=== PATIENT | male | born 1965 | race Caucasian/White ===

== ENCOUNTER 2017-06-12 01:18 | Inpatient (IN) | payer BC, OTHER ==
[~2017-06-12] VITALS: Ht 175.3 cm; Wt 84.0 kg
[~2017-06-12 01:18] MED LIST: ACET325T21 PO; ACID1TAB7 PO; ALPR0.25 PO; ALPR2TAB4 PO; AMLO10TA2 PO; AMLO5TAB2 PO; AMOX1TAB12 PO; APIX5TAB PO; CITA20TA5 PO; DOXY100T PO; ENOX80SY5 SQ; FOLI-17 PO; FURO20TA3 PO; HYDR-3237 PO; HYDR-3240 PO; LEVE500T53 PO; METO25TA35 PO; MULT1TAB60 PO; NICO-487 TD; OXYC5TAB3 PO; PANT40TA5 PO; POTA20LI PO; RISP0.5T24 PO; THIA100T6 PO; Thiamine Hcl PO; WARF7.5T6 PO-COUM
[2017-06-12] MEDS ORDERED: VANCOMYCIN PER PHARMACY MC PRN ×2 (02:00→05:00)
[2017-06-12] MEDS ORDERED: SODIUM CHLORIDE FLUSH 10ML SYR IVF ONE (02:00)
[2017-06-12] MEDS ORDERED: SODIUM CHLORIDE 0.9% 1,000ML IVBOLUS ONE (02:00)
[2017-06-12] MEDS ORDERED: AMPICILLIN/SULBACTAM 3 GM in SODIUM CHLORIDE 0.9% 100 ML IV ONE (02:00)
[2017-06-12] MEDS ORDERED: PHARMACOKINETIC CONSULTATION MC ONE ×2 (02:30→06:00)
[2017-06-12 02:51] LABS: HEMATOCRIT 44.2 % (39.2-51.8); HEMOGLOBIN 14.8 g/dL (13.7-18.0); WHITE BLOOD COUNT 10.4 x10^3/uL (3.4-10)
[2017-06-12] MEDS ORDERED: VANCOMYCIN 1,500 MG in SODIUM CHLORIDE 0.9% 250 ML IV ONE (03:00)
[2017-06-12 03:01] LABS: BLOOD UREA NITROGEN 4 mg/dL (7-18)
[2017-06-12] MEDS ORDERED: ALPR2TAB PO (03:25)
[2017-06-12] MEDS ORDERED: WARF2.5T PO (03:25)
[2017-06-12] MEDS ORDERED: AMLO10TA2 PO (03:25)
[2017-06-12] MEDS ORDERED: METH500T97 PO (03:25)
[2017-06-12] MEDS ORDERED: AMPICILLIN/SULBACTAM 3 GM in SODIUM CHLORIDE 0.9% 100 ML IV SCH (05:00)
[2017-06-12] MEDS ORDERED: ONDANSETRON 2MG/ML, 2ML IVPush PRN (05:00)
[2017-06-12] MEDS ORDERED: hydrALAzine 20 MG/ML, 1ML IVPush PRN (05:00)
[2017-06-12] MEDS ORDERED: OXYcodone IR 5MG TABLET ONE (05:24)
[2017-06-12] MEDS: OXYcodone IR 5MG TABLET PO PRN ×3 (05:26→20:04)
[2017-06-12] MEDS: LACTATED RINGERS 1,000 ML IV SCH ×2 (05:42→23:00)
[2017-06-12] MEDS ORDERED: PHARMACOKINETIC MONITORING MC PRN (06:00)
[2017-06-12] MEDS ORDERED: LORazepam 1MG TABLET PO PRN ×4 (07:00)
[2017-06-12] MEDS ORDERED: LORazepam 2 MG/ML, 1ML IV PRN ×5 (07:00)
[2017-06-12] MEDS ORDERED: LORazepam 0.5MG TABLET PO PRN (07:00)
[2017-06-12 07:47] VITALS: BP 117/75
[2017-06-12] MEDS: HYDROmorphone 2 MG/ML, 1ML IVPush PRN ×2 (08:39→22:38)
[2017-06-12] MEDS: FOLIC ACID 1 MG TABLET PO SCH (08:41)
[2017-06-12] MEDS: LEVETIRACETAM 500 MG TABLET PO SCH ×2 (08:41→20:04)
[2017-06-12] MEDS: AMPICILLIN/SULBACTAM 3 GM in SODIUM CHLORIDE 0.9% 100 ML IV SCH ×3 (08:41→22:38)
[2017-06-12] MEDS: AMLODIPINE 5 MG TABLET PO SCH (08:42)
[2017-06-12] MEDS: ALPRAZOLAM 2 MG PO SCH (08:42)
[2017-06-12] MEDS: MULTIVITAMIN 1 TABLET PO SCH (08:43)
[2017-06-12] MEDS: THIAMINE 100MG TABLET PO SCH (08:43)
[2017-06-12] MEDS: METHOCARBAMOL 500 MG TABLET PO SCH (08:43)
[2017-06-12 12:01] VITALS: BP 119/68
[2017-06-12] MEDS: VANCOMYCIN 1,500 MG in SODIUM CHLORIDE 0.9% 250 ML IV SCH (17:32)
[2017-06-12 19:29] VITALS: BP 101/64
[2017-06-12] MEDS: DIPHENHYDRAMINE/ZINC CRM 2%, 30GM TP PRN (20:05)
[2017-06-12] MEDS: DIPHENHYDRAMINE 50 MG CAPSULE PO PRN (23:22)
[2017-06-13] MEDS: OXYcodone IR 5MG TABLET PO PRN ×4 (01:28→22:07)
[2017-06-13 03:35] VITALS: BP 128/75
[2017-06-13] MEDS: HYDROmorphone 2 MG/ML, 1ML IVPush PRN (04:01)
[2017-06-13] MEDS: ACETAMINOPHEN 325 MG TABLET PO PRN ×2 (04:58→20:17)
[2017-06-13] MEDS: AMPICILLIN/SULBACTAM 3 GM in SODIUM CHLORIDE 0.9% 100 ML IV SCH ×4 (04:59→22:22)
[2017-06-13] MEDS: VANCOMYCIN 1,500 MG in SODIUM CHLORIDE 0.9% 250 ML IV SCH ×2 (05:55→17:36)
[2017-06-13 06:00] LABS: HEMATOCRIT 31.1 % (39.2-51.8); HEMOGLOBIN 10.8 g/dL (13.7-18.0); WHITE BLOOD COUNT 5.9 x10^3/uL (3.4-10)
[2017-06-13 06:16] LABS: ASPARTATE AMINO TRANSFERASE 27 U/L (15-37); BLOOD UREA NITROGEN 6 mg/dL (7-18)
[2017-06-13 07:14] VITALS: BP 131/78
[2017-06-13] MEDS: MULTIVITAMIN 1 TABLET PO SCH (08:47)
[2017-06-13] MEDS: ALPRAZOLAM 2 MG PO SCH (08:47)
[2017-06-13] MEDS: AMLODIPINE 5 MG TABLET PO SCH (08:47)
[2017-06-13] MEDS: METHOCARBAMOL 500 MG TABLET PO SCH ×2 (08:47→20:18)
[2017-06-13] MEDS: LEVETIRACETAM 500 MG TABLET PO SCH ×2 (08:47→20:17)
[2017-06-13] MEDS: THIAMINE 100MG TABLET PO SCH (08:47)
[2017-06-13] MEDS: FOLIC ACID 1 MG TABLET PO SCH (08:49)
[2017-06-13] MEDS: LACTATED RINGERS 1,000 ML IV SCH ×2 (08:50→17:36)
[2017-06-13 13:58] VITALS: BP 108/68
[2017-06-13] MEDS: DIPHENHYDRAMINE/ZINC CRM 2%, 30GM TP PRN ×2 (14:56→22:07)
[2017-06-13 19:07] VITALS: BP 108/69
[2017-06-13] MEDS: DIPHENHYDRAMINE 50 MG CAPSULE PO PRN (20:18)
[2017-06-14 00:44] VITALS: BP 147/89
[2017-06-14] MEDS: LACTATED RINGERS 1,000 ML IV SCH ×2 (03:20→11:25)
[2017-06-14] MEDS: AMPICILLIN/SULBACTAM 3 GM in SODIUM CHLORIDE 0.9% 100 ML IV SCH ×3 (04:48→16:30)
[2017-06-14] MEDS: VANCOMYCIN 1,500 MG in SODIUM CHLORIDE 0.9% 250 ML IV SCH (05:29)
[2017-06-14 07:32] VITALS: BP 121/79
[2017-06-14] MEDS: ALPRAZOLAM 2 MG PO SCH (08:19)
[2017-06-14] MEDS: AMLODIPINE 5 MG TABLET PO SCH (08:19)
[2017-06-14] MEDS: MULTIVITAMIN 1 TABLET PO SCH (08:19)
[2017-06-14] MEDS: LEVETIRACETAM 500 MG TABLET PO SCH (08:19)
[2017-06-14] MEDS: METHOCARBAMOL 500 MG TABLET PO SCH ×2 (08:19→18:09)
[2017-06-14] MEDS: FOLIC ACID 1 MG TABLET PO SCH (08:20)
[2017-06-14] MEDS: THIAMINE 100MG TABLET PO SCH (08:20)
[2017-06-14] MEDS: OXYcodone IR 5MG TABLET PO PRN (11:25)
[2017-06-14] MEDS ORDERED: SULF1TAB24 PO (12:17)
[2017-06-14 13:23] VITALS: BP 103/62
[2017-06-14] MEDS ORDERED: VANCOMYCIN 1,600 MG in SODIUM CHLORIDE 0.9% 250 ML IV SCH (23:30)
== END 2017-06-14 18:34 | disposition home or self-care (01) | DRG 603 ==
LOC: ED 02:55 → EDIP 04:12 → 3NE 05:35
PROVIDERS: ADMIT Hospitalist; ATTEND Family Medicine
DX: L03.116 Cellulitis of left lower limb (principal); G91.9 Hydrocephalus, unspecified; E87.2 Acidosis; I11.0 Hypertensive heart disease with heart failure; I50.32 Chronic diastolic (congestive) heart failure; M62.82 Rhabdomyolysis; I69.354 Hemiplegia and hemiparesis following cerebral infarction affecting left non-dominant side; E87.1 Hypo-osmolality and hyponatremia; S91.302A Unspecified open wound, left foot, initial encounter; F41.9 Anxiety disorder, unspecified; F10.229 Alcohol dependence with intoxication, unspecified; X58.XXXA Exposure to other specified factors, initial encounter; G89.29 Other chronic pain; G40.909 Epilepsy, unspecified, not intractable, without status epilepticus; Z79.01 Long term (current) use of anticoagulants; Z87.891 Personal history of nicotine dependence; Z91.19 Patient's noncompliance with other medical treatment and regimen; Z87.01 Personal history of pneumonia (recurrent); Z86.718 Personal history of other venous thrombosis and embolism; Y93.89 Activity, other specified; Y92.89 Other specified places as the place of occurrence of the external cause; Y99.8 Other external cause status
CPT/HCPCS: 36415; 80048; 80053; 80202; 80307; 82040; 83605; 83735; 84100; 85025; 85610; 87040; 87070; 87186; 87205; 96365; 96366; 96368; J0295; J1170; J3370; G0479; J7030; J7050; J7120

== ENCOUNTER 2017-07-15 11:23 | Inpatient (IN) | payer BC ==
[2017-07-15] VITALS (17 sets, daily range): BP systolic 80–105; BP diastolic 31–72
[~2017-07-15] VITALS: Ht 175.3 cm; Wt 77.4 kg
[~2017-07-15 11:23] MED LIST changes: +ALPR2TAB PO; +ETOMIDATE 20 MG/10 ML ONE; +METH500T97 PO; +MIDAZOLAM 1 MG/ML, 5ML ONE; +NALOXONE 1 MG/ML, 2ML ONE; +PROPOFOL 10 MG/ML, 100ML IV ONE; +SUCCINYLCHOLINE 20 MG/ML, 10ML ONE; +SULF1TAB24 PO; +WARF2.5T PO
[2017-07-15] MEDS ORDERED: NALOXONE 1 MG/ML, 2ML ONE (11:29)
[2017-07-15] MEDS ORDERED: PANTOPRAZOLE 80 MG in SODIUM CHLORIDE 0.9% 50 ML IVPB ONE (11:43)
[2017-07-15] MEDS ORDERED: PROPOFOL 100 ML IV PRN (12:00)
[2017-07-15] MEDS ORDERED: SODIUM CHLORIDE FLUSH 10ML SYR IVF ONE (12:00)
[2017-07-15] MEDS ORDERED: SUCCINYLCHOLINE 20 MG/ML, 10ML IVPush ONE (12:00)
[2017-07-15] MEDS ORDERED: ETOMIDATE 20 MG/10 ML IVPush ONE (12:00)
[2017-07-15] MEDS ORDERED: SODIUM CHLORIDE 0.9% 1,000ML IVBOLUS ONE (12:00)
[2017-07-15] MEDS ORDERED: FAMOTIDINE 20 MG/2 ML IVPush ONE (12:00)
[2017-07-15] MEDS: PANTOPRAZOLE 80 MG in SODIUM CHLORIDE 0.9% 100 ML IV SCH ×3 (12:10→16:22)
[2017-07-15 12:36] LABS: WHITE BLOOD COUNT 18.5 x10^3/uL (3.4-10)
[2017-07-15 12:40] LABS: ASPARTATE AMINO TRANSFERASE 102 U/L (15-37); BLOOD UREA NITROGEN 45 mg/dL (7-18)
[2017-07-15 12:46] LABS: HEMATOCRIT 5.8 % (39.2-51.8); HEMOGLOBIN 1.6 g/dL (13.7-18.0)
[2017-07-15 13:00] LABS: DIFF TOTAL CELLS COUNTED 100 CELL DIFF
[2017-07-15 13:07] LABS: VERIFY COUNTS? YES
[2017-07-15 13:08] LABS: ANISOCYTOSIS 1+; HYPOCHROMIA 2+; MICROCYTOSIS 1+
[2017-07-15 13:09] LABS: ACANTHOCYTES 1+; ECHINOCYTES 1+; OVALOCYTES 1+; POIKILOCYTOSIS 1+; POLYCHROMASIA 1+; SCHISTOCYTES 1+
[2017-07-15 13:17] LABS: ABG COLLECTION SITE ARTERIAL LINE
[2017-07-15 13:18] LABS: WHITE BLOOD COUNT 11.9 x10^3/uL (3.4-10)
[2017-07-15 13:28] LABS: HEMATOCRIT 4.8 % (39.2-51.8); HEMOGLOBIN 1.5 g/dL (13.7-18.0)
[2017-07-15] MEDS ORDERED: PHYTONADIONE 5 MG in SODIUM CHLORIDE 0.9% 50 ML IV ONE (13:30)
[2017-07-15] MEDS ORDERED: SODIUM CHLORIDE 0.9%, 500ML IVBOLUS ONE (13:30)
[2017-07-15] MEDS ORDERED: SODIUM CHLORIDE 0.9% 1,000 ML IV SCH (13:47)
[2017-07-15] MEDS ORDERED: MIDAZOLAM 1 MG/ML, 5ML ONE (13:53)
[2017-07-15] MEDS ORDERED: ACETAMINOPHEN 325 MG TABLET PO PRN (14:00)
[2017-07-15] MEDS ORDERED: LORazepam 2 MG/ML, 1ML IVPush PRN (14:00)
[2017-07-15] MEDS ORDERED: MIDAZOLAM 1 MG/ML, 5ML IVP ONE (14:00)
[2017-07-15] MEDS ORDERED: ONDANSETRON 2MG/ML, 2ML IVPush PRN (14:00)
[2017-07-15] MEDS ORDERED: NOREPINEPHRINE 4 MG in SODIUM CHLORIDE 0.9% 246 ML IV PRN (14:00)
[2017-07-15] MEDS ORDERED: POLYETHYLENE GLYCOL 17 GM PACKET PO PRN (14:00)
[2017-07-15] MEDS ORDERED: LIDOCAINE-MPF 1%, 2ML ENDO PRN (14:30)
[2017-07-15] MEDS ORDERED: PHARMACY MAY ADJ FOR RENAL FX MC SCH (14:30)
[2017-07-15 14:37] LABS: IS PT STATUS REG ER OR PRE ER? YES
[2017-07-15] MEDS: SODIUM BICARB 8.4%,50ML SYR. 100 MEQ in SODIUM CHLORIDE 0.45% 1,000 ML IV SCH (16:19)
[2017-07-15] MEDS: CEFTRIAXONE PMX 1GM/50ML 50 ML IV SCH (16:50)
[2017-07-15] MEDS: METRONIDAZOLE PMX 500MG/100ML 100 ML IV SCH ×2 (17:14→22:18)
[2017-07-15 18:35] LABS: IS PT STATUS REG ER OR PRE ER? NO
[2017-07-15] MEDS: THIAMINE 100 MG, MVI ADULT 10 ML in D5%-0.9% NACL 1,000 ML IV SCH (18:36)
[2017-07-15] MEDS: PROPOFOL 100 ML IV PRN (19:07)
[2017-07-15 21:07] LABS: BLOOD UREA NITROGEN 44 mg/dL (7-18)
[2017-07-15] MEDS ORDERED: CALCIUM GLUCONATE 9.2 MEQ in SODIUM CHLORIDE 0.9% 100 ML IV ONE (22:00)
[2017-07-15] MEDS: LORazepam 2 MG/ML, 1ML IVPush PRN (22:17)
[2017-07-16] MEDS: LORazepam 2 MG/ML, 1ML IVPush PRN ×3 (02:32→12:18)
[2017-07-16] MEDS: SODIUM BICARB 8.4%,50ML SYR. 100 MEQ in SODIUM CHLORIDE 0.45% 1,000 ML IV SCH (04:25)
[2017-07-16] MEDS: PANTOPRAZOLE 80 MG in SODIUM CHLORIDE 0.9% 100 ML IV SCH ×3 (04:44→22:58)
[2017-07-16 05:01] LABS: ABG COLLECTION SITE RIGHT BRACHIAL
[2017-07-16 05:36] LABS: BLOOD UREA NITROGEN 33 mg/dL (7-18)
[2017-07-16 05:41] LABS: ASPARTATE AMINO TRANSFERASE 395 U/L (15-37)
[2017-07-16] MEDS: METRONIDAZOLE PMX 500MG/100ML 100 ML IV SCH ×3 (05:56→21:37)
[2017-07-16 05:58] LABS: DIFF TOTAL CELLS COUNTED 100 CELL DIFF; HEMOGLOBIN 7.1 g/dL (13.7-18.0); WHITE BLOOD COUNT 8.5 x10^3/uL (3.4-10)
[2017-07-16 06:00] LABS: HEMATOCRIT 20.5 % (39.2-51.8)
[2017-07-16 06:05] LABS: ANISOCYTOSIS 1+; MICROCYTOSIS 1+; VERIFY COUNTS? YES
[2017-07-16 06:06] LABS: POLYCHROMASIA 1+
[2017-07-16 06:07] LABS: HYPOCHROMIA 1+
[2017-07-16] MEDS ORDERED: POTASSIUM CHLORIDE 40 MEQ in SODIUM CHLORIDE 0.9% 100 ML IV ONE (09:00)
[2017-07-16] MEDS: SENNA/DOCUSATE TABLET PO SCH (09:00)
[2017-07-16] MEDS: PHYTONADIONE 10 MG/ML, 1ML SQ SCH (09:00)
[2017-07-16] MEDS: SODIUM CHLORIDE 0.45% 1,000 ML IV SCH (09:21)
[2017-07-16] MEDS ORDERED: OCTREOTIDE 500 MCG in SODIUM CHLORIDE 0.9% 249 ML IV SCH (12:00)
[2017-07-16] MEDS: CEFTRIAXONE PMX 1GM/50ML 50 ML IV SCH (14:26)
[2017-07-16] MEDS: PROPOFOL 100 ML IV PRN (14:28)
[2017-07-16] MEDS ORDERED: EPINEPHRINE SYRINGE 0.1 MG/ML, 10ML ONE (15:05)
[2017-07-16] MEDS: THIAMINE 100 MG, MVI ADULT 10 ML in D5%-0.9% NACL 1,000 ML IV SCH (15:44)
[2017-07-16] MEDS ORDERED: SODIUM CHLORIDE 0.9% 1,000ML IVBOLUS ONE (18:00)
[2017-07-16] MEDS ORDERED: NOREPINEPHRINE 4 MG in SODIUM CHLORIDE 0.9% 246 ML IV PRN (18:00)
[2017-07-17 02:36] LABS: WHITE BLOOD COUNT 9.1 x10^3/uL (3.4-10)
[2017-07-17 02:38] LABS: HEMATOCRIT 20.9 % (39.2-51.8)
[2017-07-17 02:45] LABS: ASPARTATE AMINO TRANSFERASE 148 U/L (15-37); BLOOD UREA NITROGEN 17 mg/dL (7-18)
[2017-07-17] MEDS: PROPOFOL 100 ML IV PRN (03:29)
[2017-07-17 05:51] LABS: ABG COLLECTION SITE RIGHT RADIAL; COLLATERAL CIRCULATION TESTING NORMAL
[2017-07-17] MEDS: METRONIDAZOLE PMX 500MG/100ML 100 ML IV SCH ×3 (06:16→22:20)
[2017-07-17] MEDS: SODIUM CHLORIDE 0.45% 1,000 ML IV SCH (06:17)
[2017-07-17 06:57] LABS: HEMATOCRIT 20.2 % (39.2-51.8); HEMOGLOBIN 6.8 g/dL (13.7-18.0)
[2017-07-17] MEDS ORDERED: POTASSIUM PHOSPHATE 44 MEQ in SODIUM CHLORIDE 0.9% 500 ML IV ONE (07:00)
[2017-07-17] MEDS: LORazepam 2 MG/ML, 1ML IVPush PRN ×4 (07:43→23:52)
[2017-07-17] MEDS: morphine SULFATE 10 MG/ML, 1ML IVPush PRN ×3 (07:43→23:52)
[2017-07-17] MEDS ORDERED: MIDAZOLAM HCL 25 MG in SODIUM CHLORIDE 0.9% 245 ML IV PRN (08:30)
[2017-07-17 08:43] VITALS: BP 103/62
[2017-07-17 09:00] VITALS: BP 105/62
[2017-07-17] MEDS ORDERED: CALCIUM CHLORIDE 27.2 MEQ in SODIUM CHLORIDE 0.9% 100 ML IV ONE (09:00)
[2017-07-17] MEDS: NICOTINE 14MG/24 HR PATCH.TD24 TD SCH (09:52)
[2017-07-17] MEDS: PHYTONADIONE 10 MG/ML, 1ML SQ SCH (09:52)
[2017-07-17] MEDS: SENNA/DOCUSATE TABLET PO SCH (09:52)
[2017-07-17 10:30] VITALS: BP 100/65
[2017-07-17] MEDS: PANTOPRAZOLE 80 MG in SODIUM CHLORIDE 0.9% 100 ML IV SCH ×2 (10:59→20:41)
[2017-07-17 11:35] LABS: HEMATOCRIT 23.2 % (39.2-51.8); HEMOGLOBIN 7.8 g/dL (13.7-18.0)
[2017-07-17] MEDS: CEFTRIAXONE PMX 1GM/50ML 50 ML IV SCH (13:30)
[2017-07-17] MEDS: MIDAZOLAM HCL 50 MG in SODIUM CHLORIDE 0.9% 240 ML IV PRN ×3 (14:10→23:10)
[2017-07-17] MEDS: THIAMINE 100 MG, MVI ADULT 10 ML in D5%-0.9% NACL 1,000 ML IV SCH (15:45)
[2017-07-17 16:15] LABS: HEMATOCRIT 25.4 % (39.2-51.8); HEMOGLOBIN 8.3 g/dL (13.7-18.0)
[2017-07-17 22:28] LABS: HEMATOCRIT 25.6 % (39.2-51.8); HEMOGLOBIN 8.4 g/dL (13.7-18.0)
[2017-07-18 04:26] LABS: ABG COLLECTION SITE RIGHT RADIAL; COLLATERAL CIRCULATION TESTING NORMAL
[2017-07-18 04:38] LABS: ASPARTATE AMINO TRANSFERASE 57 U/L (15-37); BLOOD UREA NITROGEN 10 mg/dL (7-18)
[2017-07-18 04:51] LABS: HEMATOCRIT 25.5 % (39.2-51.8); HEMOGLOBIN 8.4 g/dL (13.7-18.0); WHITE BLOOD COUNT 6.8 x10^3/uL (3.4-10)
[2017-07-18] MEDS: METRONIDAZOLE PMX 500MG/100ML 100 ML IV SCH (05:35)
[2017-07-18] MEDS: PANTOPRAZOLE 80 MG in SODIUM CHLORIDE 0.9% 100 ML IV SCH ×2 (06:10→14:58)
[2017-07-18] MEDS: LORazepam 2 MG/ML, 1ML IVPush PRN ×4 (06:25→23:21)
[2017-07-18] MEDS: MIDAZOLAM HCL 50 MG in SODIUM CHLORIDE 0.9% 240 ML IV PRN ×3 (08:00→20:01)
[2017-07-18] MEDS: morphine SULFATE 10 MG/ML, 1ML IVPush PRN ×3 (08:07→23:21)
[2017-07-18] MEDS: SENNA/DOCUSATE TABLET PO SCH (08:59)
[2017-07-18] MEDS: NICOTINE 14MG/24 HR PATCH.TD24 TD SCH (08:59)
[2017-07-18] MEDS: PHYTONADIONE 10 MG/ML, 1ML SQ SCH (09:00)
[2017-07-18 09:16] LABS: HEMATOCRIT 25.8 % (39.2-51.8); HEMOGLOBIN 8.6 g/dL (13.7-18.0)
[2017-07-18] MEDS ORDERED: SODIUM CHLORIDE 0.9% 1,000ML IVBOLUS ONE (11:00)
[2017-07-18] MEDS: POTASSIUM CHLORIDE 20 MEQ in SODIUM CHLORIDE 0.45% 1,000 ML IV SCH (11:17)
[2017-07-18] MEDS: THIAMINE 100 MG, MVI ADULT 10 ML in D5%-0.9% NACL 1,000 ML IV SCH (14:58)
[2017-07-18] MEDS: CEFTRIAXONE PMX 1GM/50ML 50 ML IV SCH (15:34)
[2017-07-19] MEDS: LORazepam 2 MG/ML, 1ML IVPush PRN (02:22)
[2017-07-19] MEDS: morphine SULFATE 10 MG/ML, 1ML IVPush PRN (02:22)
[2017-07-19] MEDS: POTASSIUM CHLORIDE 20 MEQ in SODIUM CHLORIDE 0.45% 1,000 ML IV SCH (04:19)
[2017-07-19] MEDS: MIDAZOLAM HCL 50 MG in SODIUM CHLORIDE 0.9% 240 ML IV PRN ×2 (04:19→05:37)
[2017-07-19] MEDS: PANTOPRAZOLE 80 MG in SODIUM CHLORIDE 0.9% 100 ML IV SCH ×2 (04:20→12:00)
[2017-07-19 05:10] LABS: ASPARTATE AMINO TRANSFERASE 30 U/L (15-37); BLOOD UREA NITROGEN 5 mg/dL (7-18)
[2017-07-19 05:16] LABS: ABG COLLECTION SITE RIGHT RADIAL; COLLATERAL CIRCULATION TESTING NORMAL
[2017-07-19 05:16] LABS: HEMATOCRIT 26.2 % (39.2-51.8); HEMOGLOBIN 8.6 g/dL (13.7-18.0)
[2017-07-19 06:38] VITALS: BP 122/81
[2017-07-19] MEDS: SENNA/DOCUSATE TABLET PO SCH (08:32)
[2017-07-19] MEDS: NICOTINE 14MG/24 HR PATCH.TD24 TD SCH (08:33)
[2017-07-19] MEDS ORDERED: ALBUTEROL/IPRATROPIUM 2.5MG/0.5MG, 3 ML NPPB PRN (12:30)
[2017-07-19] MEDS ORDERED: POTASSIUM CHLORIDE 20 MEQ TAB.ER.PRT PO ONE (14:00)
[2017-07-19] MEDS: ALBUTEROL/IPRATROPIUM 2.5MG/0.5MG, 3 ML NPPB SCH ×2 (14:29→18:20)
[2017-07-19] MEDS: RISPERIDONE 0.5 MG TABLET NG SCH ×2 (16:00→20:30)
[2017-07-19] MEDS: CEFTRIAXONE PMX 1GM/50ML 50 ML IV SCH (16:00)
[2017-07-19] MEDS: OXYcodone IR 5MG TABLET PO PRN (19:35)
[2017-07-19] MEDS: THIAMINE 100 MG, MVI ADULT 10 ML in D5%-0.9% NACL 1,000 ML IV SCH (20:22)
[2017-07-19] MEDS ORDERED: PANTOPRAZOLE 80 MG in SODIUM CHLORIDE 0.9% 100 ML IV SCH (22:00)
[2017-07-20] MEDS: LORazepam 2 MG/ML, 1ML IVPush PRN (01:19)
[2017-07-20 04:42] LABS: ABG COLLECTION SITE LEFT RADIAL; COLLATERAL CIRCULATION TESTING NORMAL; FIO2 ROOM AIR %
[2017-07-20 05:53] VITALS: BP 112/77
[2017-07-20 05:56] LABS: ASPARTATE AMINO TRANSFERASE 26 U/L (15-37); BLOOD UREA NITROGEN 5 mg/dL (7-18)
[2017-07-20] MEDS: ALBUTEROL/IPRATROPIUM 2.5MG/0.5MG, 3 ML NPPB SCH ×4 (06:12→20:00)
[2017-07-20 06:53] LABS: HEMATOCRIT 24.8 % (39.2-51.8); HEMOGLOBIN 8.3 g/dL (13.7-18.0); WHITE BLOOD COUNT 9.4 x10^3/uL (3.4-10)
[2017-07-20] MEDS ORDERED: BISACODYL 10 MG SUPP PR PRN (09:00)
[2017-07-20] MEDS: POTASSIUM CHLORIDE 20 MEQ in SODIUM CHLORIDE 0.45% 1,000 ML IV SCH (09:05)
[2017-07-20] MEDS: SENNA/DOCUSATE TABLET PO SCH (09:08)
[2017-07-20] MEDS: RISPERIDONE 0.5 MG TABLET NG SCH ×2 (09:08→19:42)
[2017-07-20] MEDS: PANTOPRAZOLE 40 MG IV IVPush SCH ×2 (09:08→19:42)
[2017-07-20] MEDS: NICOTINE 14MG/24 HR PATCH.TD24 TD SCH (09:10)
[2017-07-20] MEDS ORDERED: POTASSIUM CHLORIDE 20 MEQ TAB.ER.PRT PO ONE (11:00)
[2017-07-20] MEDS: CEFTRIAXONE PMX 1GM/50ML 50 ML IV SCH (15:54)
[2017-07-20] MEDS: OXYcodone IR 5MG TABLET PO PRN (19:42)
[2017-07-20 19:57] VITALS: BP 135/80
[2017-07-20] MEDS: THIAMINE 100 MG, MVI ADULT 10 ML in D5%-0.9% NACL 1,000 ML IV SCH (20:45)
[2017-07-20] MEDS ORDERED: POLYETHYLENE GLYCOL 17 GM PACKET PO PRN (21:30)
[2017-07-20] MEDS ORDERED: ONDANSETRON 2MG/ML, 2ML IVPush PRN (21:30)
[2017-07-21 04:12] VITALS: BP 136/84
[2017-07-21 06:13] LABS: ASPARTATE AMINO TRANSFERASE 15 U/L (15-37); BLOOD UREA NITROGEN 6 mg/dL (7-18)
[2017-07-21 07:27] VITALS: BP 140/90
[2017-07-21] MEDS: PANTOPRAZOLE 40 MG IV IVPush SCH ×2 (07:52→20:24)
[2017-07-21] MEDS: NICOTINE 14MG/24 HR PATCH.TD24 TD SCH (07:53)
[2017-07-21] MEDS: RISPERIDONE 0.5 MG TABLET NG SCH ×2 (07:53→20:24)
[2017-07-21] MEDS: SENNA/DOCUSATE TABLET PO SCH (07:55)
[2017-07-21] MEDS: ALBUTEROL/IPRATROPIUM 2.5MG/0.5MG, 3 ML NPPB SCH ×4 (08:25→20:15)
[2017-07-21 14:11] VITALS: BP 145/91
[2017-07-21] MEDS: CEFTRIAXONE PMX 1GM/50ML 50 ML IV SCH (14:13)
[2017-07-21] MEDS: OXYcodone IR 5MG TABLET PO PRN ×2 (14:13→20:24)
[2017-07-21 20:09] VITALS: BP 120/87
[2017-07-21] MEDS: THIAMINE 100 MG, MVI ADULT 10 ML in D5%-0.9% NACL 1,000 ML IV SCH (20:24)
[2017-07-22] MEDS: OXYcodone IR 5MG TABLET PO PRN ×4 (00:26→20:57)
[2017-07-22 02:45] VITALS: BP 148/89
[2017-07-22] MEDS: ALBUTEROL/IPRATROPIUM 2.5MG/0.5MG, 3 ML NPPB SCH ×3 (07:40→19:58)
[2017-07-22 07:47] VITALS: BP 143/88
[2017-07-22] MEDS: SENNA/DOCUSATE TABLET PO SCH (09:00)
[2017-07-22] MEDS: PANTOPRAZOLE 40 MG IV IVPush SCH (10:48)
[2017-07-22] MEDS: RISPERIDONE 0.5 MG TABLET NG SCH ×2 (10:49→20:57)
[2017-07-22] MEDS: NICOTINE 14MG/24 HR PATCH.TD24 TD SCH (10:50)
[2017-07-22 15:03] VITALS: BP 149/91
[2017-07-22] MEDS: CEFTRIAXONE PMX 1GM/50ML 50 ML IV SCH (15:22)
[2017-07-22] MEDS ORDERED: POTASSIUM CHLORIDE 20 MEQ TAB.ER.PRT PO ONE (16:30)
[2017-07-22] MEDS: FUROSEMIDE 20 MG TABLET PO SCH (17:50)
[2017-07-22] MEDS: PANTOPROZOLE 40MG TABLET PO SCH (20:57)
[2017-07-22] MEDS: THIAMINE 100 MG, MVI ADULT 10 ML in D5%-0.9% NACL 1,000 ML IV SCH (20:57)
[2017-07-22 21:01] VITALS: BP 131/84
[2017-07-23] MEDS: OXYcodone IR 5MG TABLET PO PRN ×2 (02:10→14:43)
[2017-07-23 03:38] VITALS: BP 147/85
[2017-07-23] MEDS: LORazepam 2 MG/ML, 1ML IVPush PRN (05:26)
[2017-07-23] MEDS: ALBUTEROL/IPRATROPIUM 2.5MG/0.5MG, 3 ML NPPB SCH (07:48)
[2017-07-23] MEDS ORDERED: ALBUTEROL/IPRATROPIUM 2.5MG/0.5MG, 3 ML NPPB PRN (09:00)
[2017-07-23 09:41] VITALS: BP 170/91
[2017-07-23] MEDS: NICOTINE 14MG/24 HR PATCH.TD24 TD SCH (09:59)
[2017-07-23] MEDS: FUROSEMIDE 20 MG TABLET PO SCH ×2 (10:00→18:31)
[2017-07-23] MEDS: PANTOPROZOLE 40MG TABLET PO SCH ×2 (10:00→18:31)
[2017-07-23] MEDS: RISPERIDONE 0.5 MG TABLET NG SCH (10:00)
[2017-07-23] MEDS: SENNA/DOCUSATE TABLET PO SCH (10:01)
[2017-07-23 12:13] LABS: HEMATOCRIT 28.5 % (39.2-51.8); HEMOGLOBIN 9.2 g/dL (13.7-18.0); WHITE BLOOD COUNT 7.3 x10^3/uL (3.4-10)
[2017-07-23 12:29] LABS: BLOOD UREA NITROGEN 3 mg/dL (7-18)
[2017-07-23 14:00] VITALS: BP 135/86
[2017-07-23] MEDS: CEFTRIAXONE PMX 1GM/50ML 50 ML IV SCH (14:41)
[2017-07-23 19:03] VITALS: BP 131/82
[2017-07-23] MEDS: THIAMINE 100 MG, MVI ADULT 10 ML in D5%-0.9% NACL 1,000 ML IV SCH (20:54)
[2017-07-24 00:40] VITALS: BP 152/80
[2017-07-24] MEDS: OXYcodone IR 5MG TABLET PO PRN ×3 (01:48→22:34)
[2017-07-24 08:00] VITALS: BP 119/79
[2017-07-24] MEDS: SENNA/DOCUSATE TABLET PO SCH (08:07)
[2017-07-24] MEDS: PANTOPROZOLE 40MG TABLET PO SCH ×2 (08:16→16:12)
[2017-07-24] MEDS: NICOTINE 14MG/24 HR PATCH.TD24 TD SCH (08:16)
[2017-07-24] MEDS: FUROSEMIDE 20 MG TABLET PO SCH ×2 (08:16→16:12)
[2017-07-24] MEDS ORDERED: DIPHENHYDRAMINE 25 MG CAPSULE PO ONE (13:00)
[2017-07-24] MEDS: CEFTRIAXONE PMX 1GM/50ML 50 ML IV SCH (13:07)
[2017-07-24 13:55] VITALS: BP 129/83
[2017-07-24] MEDS: LEVETIRACETAM 500 MG in SODIUM CHLORIDE 0.9% 100 ML IV SCH (14:15)
[2017-07-24 19:29] VITALS: BP 132/88
[2017-07-24] MEDS: THIAMINE 100 MG, MVI ADULT 10 ML in D5%-0.9% NACL 1,000 ML IV SCH (20:36)
[2017-07-25] MEDS: LEVETIRACETAM 500 MG in SODIUM CHLORIDE 0.9% 100 ML IV SCH ×2 (02:13→14:35)
[2017-07-25 02:16] VITALS: BP 144/87
[2017-07-25] MEDS: SENNA/DOCUSATE TABLET PO SCH (07:53)
[2017-07-25] MEDS: PANTOPROZOLE 40MG TABLET PO SCH ×2 (07:53→18:12)
[2017-07-25] MEDS: FUROSEMIDE 20 MG TABLET PO SCH ×2 (07:53→18:12)
[2017-07-25] MEDS: NICOTINE 14MG/24 HR PATCH.TD24 TD SCH (07:54)
[2017-07-25 08:30] VITALS: BP 142/76
[2017-07-25 14:31] VITALS: BP 114/78
[2017-07-25] MEDS: CEFTRIAXONE PMX 1GM/50ML 50 ML IV SCH (15:05)
[2017-07-25 20:29] VITALS: BP 131/65
[2017-07-26] VITALS (8 sets, daily range): BP systolic 122–154; BP diastolic 57–93
[2017-07-26] MEDS: THIAMINE 100 MG, MVI ADULT 10 ML in D5%-0.9% NACL 1,000 ML IV SCH (01:58)
[2017-07-26] MEDS: LEVETIRACETAM 1,000 MG in SODIUM CHLORIDE 0.9% 100 ML IV SCH ×2 (02:21→14:51)
[2017-07-26 06:10] LABS: ASPARTATE AMINO TRANSFERASE 15 U/L (15-37); BLOOD UREA NITROGEN 4 mg/dL (7-18)
[2017-07-26 06:17] LABS: WHITE BLOOD COUNT 5.7 x10^3/uL (3.4-10)
[2017-07-26 06:19] LABS: HEMATOCRIT 19.2 % (39.2-51.8); HEMOGLOBIN 6.2 g/dL (13.7-18.0)
[2017-07-26 06:48] LABS: ANISOCYTOSIS 1+; HYPOCHROMIA 1+; POLYCHROMASIA 1+; SPHEROCYTES 1+
[2017-07-26] MEDS: PANTOPROZOLE 40MG TABLET PO SCH ×2 (09:28→17:14)
[2017-07-26] MEDS: POTASSIUM CHLORIDE 20 MEQ TAB.ER.PRT PO SCH ×2 (09:28→17:14)
[2017-07-26] MEDS: FUROSEMIDE 20 MG TABLET PO SCH ×2 (09:29→17:14)
[2017-07-26] MEDS: NICOTINE 14MG/24 HR PATCH.TD24 TD SCH (09:29)
[2017-07-26] MEDS: SENNA/DOCUSATE TABLET PO SCH (09:29)
[2017-07-26] MEDS: OXYcodone IR 5MG TABLET PO PRN ×3 (09:53→22:52)
[2017-07-26] MEDS: CEFTRIAXONE PMX 1GM/50ML 50 ML IV SCH (14:07)
[2017-07-26] MEDS ORDERED: DIPHENHYDRAMINE 25 MG CAPSULE ONE (14:49)
[2017-07-26] MEDS ORDERED: DIPHENHYDRAMINE 25 MG CAPSULE PO ONE (15:00)
[2017-07-26] MEDS: morphine SULFATE 10 MG/ML, 1ML IVPush PRN (23:30)
[2017-07-27] MEDS: THIAMINE 100 MG, MVI ADULT 10 ML in D5%-0.9% NACL 1,000 ML IV SCH (01:55)
[2017-07-27] MEDS: ALPRazolam 1MG TABLET PO PRN ×2 (01:58→03:24)
[2017-07-27 02:00] VITALS: BP 121/64
[2017-07-27] MEDS: LEVETIRACETAM 1,000 MG in SODIUM CHLORIDE 0.9% 100 ML IV SCH ×2 (03:10→16:17)
[2017-07-27] MEDS: morphine SULFATE 10 MG/ML, 1ML IVPush PRN (03:10)
[2017-07-27] MEDS: ACETAMINOPHEN 325 MG TABLET PO PRN ×2 (06:17→21:56)
[2017-07-27 06:33] LABS: ASPARTATE AMINO TRANSFERASE 15 U/L (15-37); BLOOD UREA NITROGEN 4 mg/dL (7-18)
[2017-07-27 07:08] LABS: HEMATOCRIT 27.6 % (39.2-51.8); HEMOGLOBIN 9.1 g/dL (13.7-18.0); WHITE BLOOD COUNT 5.3 x10^3/uL (3.4-10)
[2017-07-27 07:16] VITALS: BP 118/68
[2017-07-27] MEDS: SENNA/DOCUSATE TABLET PO SCH (08:54)
[2017-07-27] MEDS: PANTOPROZOLE 40MG TABLET PO SCH ×2 (08:54→17:23)
[2017-07-27] MEDS: NICOTINE 14MG/24 HR PATCH.TD24 TD SCH (08:55)
[2017-07-27] MEDS: FUROSEMIDE 20 MG TABLET PO SCH ×2 (08:55→17:23)
[2017-07-27 13:03] VITALS: BP 129/73
[2017-07-27] MEDS: CEFTRIAXONE PMX 1GM/50ML 50 ML IV SCH (13:43)
[2017-07-27 19:24] VITALS: BP 127/51
[2017-07-27] MEDS: OXYcodone IR 5MG TABLET PO PRN (21:56)
[2017-07-28] MEDS: THIAMINE 100 MG, MVI ADULT 10 ML in D5%-0.9% NACL 1,000 ML IV SCH (01:35)
[2017-07-28 02:01] VITALS: BP 94/59
[2017-07-28] MEDS: LEVETIRACETAM 1,000 MG in SODIUM CHLORIDE 0.9% 100 ML IV SCH (03:29)
[2017-07-28 05:25] LABS: HEMATOCRIT 28.3 % (39.2-51.8); HEMOGLOBIN 9.2 g/dL (13.7-18.0); WHITE BLOOD COUNT 4.5 x10^3/uL (3.4-10)
[2017-07-28 05:48] LABS: ASPARTATE AMINO TRANSFERASE 13 U/L (15-37); BLOOD UREA NITROGEN 3 mg/dL (7-18)
[2017-07-28 08:13] VITALS: BP 116/71
[2017-07-28] MEDS: ALPRazolam 1MG TABLET PO PRN ×2 (08:23→17:58)
[2017-07-28] MEDS: NICOTINE 14MG/24 HR PATCH.TD24 TD SCH (08:24)
[2017-07-28] MEDS: SENNA/DOCUSATE TABLET PO SCH (08:24)
[2017-07-28] MEDS: FUROSEMIDE 20 MG TABLET PO SCH (08:24)
[2017-07-28] MEDS: PANTOPROZOLE 40MG TABLET PO SCH ×2 (08:24→17:20)
[2017-07-28 14:24] VITALS: BP 126/79
[2017-07-28] MEDS: CEFTRIAXONE PMX 1GM/50ML 50 ML IV SCH (14:49)
[2017-07-28] MEDS: OXYcodone IR 5MG TABLET PO PRN (14:58)
[2017-07-28] MEDS ORDERED: THIA100T6 PO (15:47)
[2017-07-28] MEDS ORDERED: LEVE500T53 PO (15:47)
[2017-07-28] MEDS ORDERED: PANT40TA5 PO (15:47)
[2017-07-28] MEDS ORDERED: FURO20TA3 PO (15:47)
[2017-07-28 16:01] VITALS: BP 102/66
[2017-07-28] MEDS: LEVETIRACETAM 500 MG in SODIUM CHLORIDE 0.9% 100 ML IV SCH (16:05)
[2017-07-28] MEDS: METHOCARBAMOL 750 MG TABLET PO PRN (17:19)
[2017-07-28] MEDS: LEVETIRACETAM 500 MG TABLET PO SCH (17:20)
[2017-07-28] MEDS: DIPHENHYDRAMINE 25 MG CAPSULE PO PRN (17:59)
[2017-07-28 20:00] VITALS: BP 111/70
[2017-07-28] MEDS ORDERED: ALPR1TAB6 PO (21:19)
[2017-07-28] MEDS ORDERED: METH750T2 PO (21:19)
[2017-07-28] MEDS ORDERED: NICO-486 TD (21:19)
[2017-07-29] MEDS: ALPRazolam 1MG TABLET PO PRN ×2 (00:27→08:42)
[2017-07-29] MEDS: METHOCARBAMOL 750 MG TABLET PO PRN ×2 (00:27→06:24)
[2017-07-29] MEDS: ACETAMINOPHEN 325 MG TABLET PO PRN (00:27)
[2017-07-29 02:06] VITALS: BP 103/52
[2017-07-29] MEDS: DIPHENHYDRAMINE 25 MG CAPSULE PO PRN ×2 (03:17→11:38)
[2017-07-29] MEDS: OXYcodone IR 5MG TABLET PO PRN ×2 (03:17→08:42)
[2017-07-29] MEDS: LEVETIRACETAM 500 MG TABLET PO SCH (08:43)
[2017-07-29] MEDS: SENNA/DOCUSATE TABLET PO SCH (08:43)
[2017-07-29] MEDS: PANTOPROZOLE 40MG TABLET PO SCH (08:43)
[2017-07-29] MEDS: NICOTINE 14MG/24 HR PATCH.TD24 TD SCH (08:44)
[2017-07-29 08:49] VITALS: BP 104/65
[2017-07-29] MEDS ORDERED: FUROSEMIDE 20 MG TABLET PO SCH (09:00)
== END 2017-07-29 11:47 | DRG 870 ==
LOC: ED 11:45 → EDIP 12:54 → CCU 14:29 → 4NOR 07-20 17:50
PROVIDERS: ADMIT Hospitalist; ATTEND Hospitalist
PROC: 5A1955Z Respiratory Ventilation, Greater than 96 Consecutive Hours (ICD-10-PCS; principal; 2017-07-15)
PROC: 0BH17EZ Insertion of Endotracheal Airway into Trachea, Via Natural or Artificial Opening (ICD-10-PCS; 2017-07-15)
PROC: 30233L1 Transfusion of Nonautologous Fresh Plasma into Peripheral Vein, Percutaneous Approach (ICD-10-PCS; 2017-07-15)
PROC: 30233N1 Transfusion of Nonautologous Red Blood Cells into Peripheral Vein, Percutaneous Approach (ICD-10-PCS; 2017-07-15)
PROC: 30233K1 Transfusion of Nonautologous Frozen Plasma into Peripheral Vein, Percutaneous Approach (ICD-10-PCS; 2017-07-15)
PROC: 05HN33Z Insertion of Infusion Device into Left Internal Jugular Vein, Percutaneous Approach (ICD-10-PCS; 2017-07-15)
PROC: B5141ZA Fluoroscopy of Left Jugular Veins using Low Osmolar Contrast, Guidance (ICD-10-PCS; 2017-07-15)
PROC: 3E0G8GC Introduction of Other Therapeutic Substance into Upper GI, Via Natural or Artificial Opening Endoscopic (ICD-10-PCS; 2017-07-16)
PROC: 02HV33Z Insertion of Infusion Device into Superior Vena Cava, Percutaneous Approach (ICD-10-PCS; 2017-07-20)
PROC: B5181ZA Fluoroscopy of Superior Vena Cava using Low Osmolar Contrast, Guidance (ICD-10-PCS; 2017-07-20)
DX: A41.9 Sepsis, unspecified organism (principal); J96.00 Acute respiratory failure, unspecified whether with hypoxia or hypercapnia; R57.9 Shock, unspecified; J69.0 Pneumonitis due to inhalation of food and vomit; G93.41 Metabolic encephalopathy; E43 Unspecified severe protein-calorie malnutrition; F10.231 Alcohol dependence with withdrawal delirium; E87.2 Acidosis; K22.11 Ulcer of esophagus with bleeding; K26.4 Chronic or unspecified duodenal ulcer with hemorrhage; D62 Acute posthemorrhagic anemia; I50.32 Chronic diastolic (congestive) heart failure; E87.0 Hyperosmolality and hypernatremia; J98.11 Atelectasis; Z99.11 Dependence on respirator [ventilator] status; I69.351 Hemiplegia and hemiparesis following cerebral infarction affecting right dominant side; I82.502 Chronic embolism and thrombosis of unspecified deep veins of left lower extremity; I11.0 Hypertensive heart disease with heart failure; K72.90 Hepatic failure, unspecified without coma; E86.1 Hypovolemia; Z68.25 Body mass index [BMI] 25.0-25.9, adult; Z88.8 Allergy status to other drugs, medicaments and biological substances; E87.8 Other disorders of electrolyte and fluid balance, not elsewhere classified; G40.909 Epilepsy, unspecified, not intractable, without status epilepticus; K44.9 Diaphragmatic hernia without obstruction or gangrene; K76.0 Fatty (change of) liver, not elsewhere classified; N50.89 Other specified disorders of the male genital organs; T45.515A Adverse effect of anticoagulants, initial encounter; Z51.5 Encounter for palliative care; Z79.01 Long term (current) use of anticoagulants; Z82.49 Family history of ischemic heart disease and other diseases of the circulatory system; Z87.19 Personal history of other diseases of the digestive system; Z91.19 Patient's noncompliance with other medical treatment and regimen
CPT/HCPCS: 31500; 36415; 36556; 36569; 36600; 71010; 74000; 76700; 76937; 77001; 80048; 80053; 82040; 82140; 82330; 82533; 82803; 83605; 83690; 83735; 84100; 84443; 84478; 84484; 85014; 85018; 85025; 85027; 85610; 85730; 86704; 86706; 86708; 86803; 86850; 86900; 86923; 87040; 87070; 87077; 87081; 87186; 87205; 87324; 87340; 93005; 93970; 94002; 94003; 94640; 95816; 96365; 96375; 99152; 99153; J0610; J0696; J1953; J2250; J2405; J2704; J3411; J3430; J3480; J7042; J7620; C1751; C9113; J0330; J2060; J2270; J2310; J7030; J7040; J7050; P9016; P9017; Q0163

== ENCOUNTER 2017-11-11 22:49 | Inpatient (IN) | payer BC, OTHER ==
[~2017-11-11] VITALS: Ht 176.5 cm; Wt 83.0 kg
[~2017-11-11 22:49] MED LIST changes: +ALPR1TAB6 PO; -ETOMIDATE 20 MG/10 ML ONE; +METH750T2 PO; -MIDAZOLAM 1 MG/ML, 5ML ONE; -NALOXONE 1 MG/ML, 2ML ONE; +NICO-486 TD; -PROPOFOL 10 MG/ML, 100ML IV ONE; -SUCCINYLCHOLINE 20 MG/ML, 10ML ONE
[2017-11-11] MEDS ORDERED: PANTOPRAZOLE 80 MG in SODIUM CHLORIDE 0.9% 50 ML IVPB ONE (22:57)
[2017-11-11] MEDS ORDERED: PANTOPRAZOLE 80 MG in SODIUM CHLORIDE 0.9% 100 ML IV SCH (22:57)
[2017-11-11] MEDS ORDERED: SODIUM CHLORIDE 0.9% 1,000 ML IV ONE (22:57)
[2017-11-11] MEDS ORDERED: SODIUM CHLORIDE 0.9% 1,000ML IVBOLUS ONE (23:00)
[2017-11-11] MEDS ORDERED: ONDANSETRON 2MG/ML, 2ML IVPush ONE (23:00)
[2017-11-11] MEDS ORDERED: SODIUM CHLORIDE FLUSH 10ML SYR IVF ONE (23:00)
[2017-11-11 23:38] LABS: BASOPHILS # (AUTO) 0.01 x10^3/uL (0-0.1); BASOPHILS % (AUTO) 0 % (0-1); EOSINOPHILS # (AUTO) 0.07 x10^3/uL (0-0.4); EOSINOPHILS % (AUTO) 1 % (1-7); LYMPHOCYTES # (AUTO) 1.73 x10^3/uL (1-3.4); LYMPHOCYTES % (AUTO) 17 % (22-44); MD NO; MEAN CORPUSCULAR HEMOGLOBIN 29.3 pg (27.5-34.5); MEAN CORPUSCULAR HGB CONC 33.6 g/dL (33.2-36.2); MEAN CORPUSCULAR VOLUME 87.3 fL (81-97); MEAN PLATELET VOLUME 7.6 fL (7.4-10.4); MONOCYTES # (AUTO) 0.35 x10^3/uL (0.2-0.8); MONOCYTES % (AUTO) 3 % (2-9); NEUTROPHILS # (AUTO) 8.02 x10^3/uL (1.8-6.8); NEUTROPHILS % (AUTO) 79 % (42-75); PLATELET COUNT 298 x10^3/uL (130-400); RED BLOOD COUNT 4.75 x10^6/uL (4.38-5.82); RED CELL DISTRIBUTION WIDTH 20.4 % (9.4-14.8)
[2017-11-11] MEDS ORDERED: ONDANSETRON 2MG/ML, 2ML ONE (23:43)
[2017-11-11 23:48] LABS: INTERNATIONAL NORMALIZED RATIO 1.69 (0.93-1.1); PROTHROMBIN TIME 17.4 Seconds (9.6-11.5)
[2017-11-11 23:51] LABS: ALANINE AMINOTRANSFERASE 19 U/L (12-78); ALBUMIN 4.1 g/dL (3.4-5.0); ANION GAP 10 mmol/L (5-15); CALCIUM 8.4 mg/dL (8.5-10.1); CHLORIDE 109 mmol/L (98-107); CREATININE 0.55 mg/dL (0.7-1.3)
[2017-11-11 23:53] LABS: ALKALINE PHOSPHATASE 79 U/L (45-117); BILIRUBIN,TOTAL 0.3 mg/dL (0.2-1.0); TOTAL PROTEIN 7.7 g/dL (6.4-8.2)
[2017-11-12 00:58] LABS: MICROSCOPIC NOT IND
[2017-11-12 01:02] LABS: CULTURE INDICATED? NO
[2017-11-12] MEDS ORDERED: SODIUM CHLORIDE FLUSH 10ML SYR IVF PRN (02:00)
[2017-11-12 02:15] VITALS: BP 120/85
[2017-11-12] MEDS ORDERED: ONDANSETRON 2MG/ML, 2ML IVPush PRN (05:30)
[2017-11-12] MEDS ORDERED: hydrALAzine 20 MG/ML, 1ML IVPush PRN (05:30)
[2017-11-12] MEDS ORDERED: VARE0.5T PO (06:05)
[2017-11-12] MEDS ORDERED: WARF5TAB PO (06:08)
[2017-11-12 06:17] LABS: BASOPHILS # (AUTO) 0.02 x10^3/uL (0-0.1); BASOPHILS % (AUTO) 0 % (0-1); EOSINOPHILS # (AUTO) 0.05 x10^3/uL (0-0.4); EOSINOPHILS % (AUTO) 1 % (1-7); INTERNATIONAL NORMALIZED RATIO 1.71 (0.93-1.1); LYMPHOCYTES # (AUTO) 2.01 x10^3/uL (1-3.4); LYMPHOCYTES % (AUTO) 30 % (22-44); MD NO; MEAN CORPUSCULAR HEMOGLOBIN 29.4 pg (27.5-34.5); MEAN CORPUSCULAR HGB CONC 33.5 g/dL (33.2-36.2); MEAN CORPUSCULAR VOLUME 87.9 fL (81-97); MEAN PLATELET VOLUME 8.1 fL (7.4-10.4); MONOCYTES # (AUTO) 0.36 x10^3/uL (0.2-0.8); MONOCYTES % (AUTO) 5 % (2-9); NEUTROPHILS # (AUTO) 4.29 x10^3/uL (1.8-6.8); NEUTROPHILS % (AUTO) 64 % (42-75); PLATELET COUNT 270 x10^3/uL (130-400); PROTHROMBIN TIME 17.6 Seconds (9.6-11.5); RED BLOOD COUNT 4.53 x10^6/uL (4.38-5.82); RED CELL DISTRIBUTION WIDTH 19.9 % (9.4-14.8)
[2017-11-12 06:25] LABS: ANION GAP 8 mmol/L (5-15); CHLORIDE 114 mmol/L (98-107); CREATININE 0.67 mg/dL (0.7-1.3)
[2017-11-12 08:30] VITALS: BP 97/60
[2017-11-12] MEDS: LEVETIRACETAM 500 MG TABLET PO SCH ×2 (08:49→21:00)
[2017-11-12] MEDS: PANTOPRAZOLE 40 MG IV IVPush SCH ×2 (08:49→21:08)
[2017-11-12] MEDS: MVI ADULT 10 ML, FOLIC ACID 1 MG in D5%-0.9% NACL 1,000 ML IV SCH (08:50)
[2017-11-12] MEDS: THIAMINE 100MG TABLET PO SCH (10:31)
[2017-11-12] MEDS: LORazepam 2 MG/ML, 1ML IVPush PRN ×2 (12:30→21:40)
[2017-11-12 14:06] VITALS: BP 115/75
[2017-11-12 19:27] VITALS: BP 110/72
[2017-11-13 04:00] VITALS: BP 121/76
[2017-11-13] MEDS: MVI ADULT 10 ML, FOLIC ACID 1 MG in D5%-0.9% NACL 1,000 ML IV SCH (05:40)
[2017-11-13 05:49] LABS: BASOPHILS # (AUTO) 0.03 x10^3/uL (0-0.1); BASOPHILS % (AUTO) 0 % (0-1); EOSINOPHILS # (AUTO) 0.23 x10^3/uL (0-0.4); EOSINOPHILS % (AUTO) 3 % (1-7); LYMPHOCYTES % (AUTO) 26 % (22-44); MD NO; MEAN CORPUSCULAR HEMOGLOBIN 29.9 pg (27.5-34.5); MEAN CORPUSCULAR HGB CONC 34.2 g/dL (33.2-36.2); MEAN CORPUSCULAR VOLUME 87.4 fL (81-97); MEAN PLATELET VOLUME 8.2 fL (7.4-10.4); MONOCYTES # (AUTO) 0.63 x10^3/uL (0.2-0.8); MONOCYTES % (AUTO) 9 % (2-9); NEUTROPHILS # (AUTO) 4.13 x10^3/uL (1.8-6.8); NEUTROPHILS % (AUTO) 61 % (42-75); PLATELET COUNT 224 x10^3/uL (130-400); RED BLOOD COUNT 3.93 x10^6/uL (4.38-5.82); RED CELL DISTRIBUTION WIDTH 19.2 % (9.4-14.8)
[2017-11-13 05:50] LABS: CHLORIDE 109 mmol/L (98-107)
[2017-11-13 06:20] LABS: ALANINE AMINOTRANSFERASE 19 U/L (12-78); ALBUMIN 3.2 g/dL (3.4-5.0); ALKALINE PHOSPHATASE 70 U/L (45-117); ANION GAP 8 mmol/L (5-15); BILIRUBIN,TOTAL 0.7 mg/dL (0.2-1.0); CALCIUM 8.2 mg/dL (8.5-10.1); CREATININE 0.73 mg/dL (0.7-1.3)
[2017-11-13] MEDS ORDERED: DIPHENHYDRAMINE 25 MG CAPSULE PO ONE (07:00)
[2017-11-13 07:32] VITALS: BP 117/74
[2017-11-13] MEDS: ACETAMINOPHEN 500 MG TABLET PO PRN (07:42)
[2017-11-13] MEDS: NICOTINE 14MG/24 HR PATCH.TD24 TD SCH (07:44)
[2017-11-13] MEDS: PANTOPRAZOLE 40 MG IV IVPush SCH (09:16)
[2017-11-13] MEDS: LEVETIRACETAM 500 MG TABLET PO SCH ×2 (09:16→19:46)
[2017-11-13] MEDS: THIAMINE 100MG TABLET PO SCH ×2 (09:16→10:00)
[2017-11-13 10:50] LABS: INTERNATIONAL NORMALIZED RATIO 1.16 (0.93-1.1)
[2017-11-13] MEDS: MULTIVITAMIN 1 TABLET PO SCH (11:09)
[2017-11-13] MEDS: FOLIC ACID 1 MG TABLET PO SCH (11:09)
[2017-11-13] MEDS: LORazepam 2 MG/ML, 1ML IVPush PRN ×2 (12:01→19:46)
[2017-11-13 13:50] VITALS: BP 99/62
[2017-11-13] MEDS ORDERED: WARFARIN 5 MG TABLET PO-COUM ONE (18:00)
[2017-11-13] MEDS: PANTOPRAZOLE 20MG TABLET PO SCH (19:46)
[2017-11-13 21:00] VITALS: BP 113/69
[2017-11-13] MEDS ORDERED: ALPR0.5T PO (21:53)
[2017-11-13] MEDS: METHOCARBAMOL 500 MG TABLET PO PRN (22:28)
[2017-11-14] MEDS: LORazepam 2 MG/ML, 1ML IVPush PRN ×3 (00:12→23:02)
[2017-11-14] MEDS: ACETAMINOPHEN 500 MG TABLET PO PRN ×2 (00:12→20:29)
[2017-11-14 00:27] VITALS: BP 114/71
[2017-11-14 05:21] LABS: INTERNATIONAL NORMALIZED RATIO 0.99 (0.93-1.1); PROTHROMBIN TIME 10.3 Seconds (9.6-11.5)
[2017-11-14] MEDS: HALOPERIDOL 5 MG/ML IVPush PRN ×2 (07:16→08:08)
[2017-11-14 07:51] VITALS: BP 133/87
[2017-11-14] MEDS: LEVETIRACETAM 500 MG TABLET PO SCH ×2 (08:01→20:28)
[2017-11-14] MEDS: MULTIVITAMIN 1 TABLET PO SCH (08:01)
[2017-11-14] MEDS: FOLIC ACID 1 MG TABLET PO SCH (08:01)
[2017-11-14] MEDS: THIAMINE 100MG TABLET PO SCH (08:01)
[2017-11-14] MEDS: PANTOPRAZOLE 20MG TABLET PO SCH ×2 (08:01→20:29)
[2017-11-14] MEDS: NICOTINE 14MG/24 HR PATCH.TD24 TD SCH ×2 (08:02→23:00)
[2017-11-14] MEDS ORDERED: ZIPRASIDONE 20 MG INJ IM PRN (09:00)
[2017-11-14] MEDS ORDERED: ZIPRASIDONE 20 MG INJ IM ONE (09:00)
[2017-11-14 15:18] VITALS: BP 118/80
[2017-11-14] MEDS ORDERED: WARFARIN 7.5 MG TABLET PO-COUM SCH (18:00)
[2017-11-14 18:27] VITALS: BP 104/67
[2017-11-14] MEDS: METHOCARBAMOL 500 MG TABLET PO PRN (20:29)
[2017-11-14] MEDS ORDERED: DIPHENHYDRAMINE 50 MG CAPSULE PO ONE (23:30)
[2017-11-14] MEDS ORDERED: DIPHENHYDRAMINE 50 MG CAPSULE ONE (23:32)
[2017-11-15 00:26] VITALS: BP 114/75
[2017-11-15] MEDS: LORazepam 2 MG/ML, 1ML IVPush PRN ×4 (04:45→20:54)
[2017-11-15 06:23] LABS: INTERNATIONAL NORMALIZED RATIO 1.03 (0.93-1.1); PROTHROMBIN TIME 10.7 Seconds (9.6-11.5)
[2017-11-15 07:06] VITALS: BP 108/67
[2017-11-15] MEDS: LEVETIRACETAM 500 MG TABLET PO SCH ×2 (08:51→20:53)
[2017-11-15] MEDS: THIAMINE 100MG TABLET PO SCH (08:51)
[2017-11-15] MEDS: PANTOPRAZOLE 20MG TABLET PO SCH ×2 (08:52→20:54)
[2017-11-15] MEDS: FOLIC ACID 1 MG TABLET PO SCH (08:52)
[2017-11-15] MEDS: MULTIVITAMIN 1 TABLET PO SCH (08:52)
[2017-11-15] MEDS ORDERED: LORazepam 2 MG/ML, 1ML IVPush ONE (09:00)
[2017-11-15] MEDS: ACETAMINOPHEN 500 MG TABLET PO PRN (10:24)
[2017-11-15 14:00] VITALS: BP 128/85
[2017-11-15] MEDS ORDERED: WARFARIN 7.5 MG TABLET PO-COUM SCH (18:00)
[2017-11-15 21:57] VITALS: BP 122/86
[2017-11-16 01:23] VITALS: BP 106/70
[2017-11-16] MEDS: LORazepam 2 MG/ML, 1ML IVPush PRN (02:00)
[2017-11-16] MEDS: ACETAMINOPHEN 500 MG TABLET PO PRN ×3 (05:22→21:27)
[2017-11-16] MEDS ORDERED: ZIPRASIDONE 20 MG INJ IM ONE ×2 (05:41→06:00)
[2017-11-16 05:43] LABS: BASOPHILS # (AUTO) 0.02 x10^3/uL (0-0.1); BASOPHILS % (AUTO) 0 % (0-1); EOSINOPHILS # (AUTO) 0.16 x10^3/uL (0-0.4); EOSINOPHILS % (AUTO) 3 % (1-7); LYMPHOCYTES # (AUTO) 1.29 x10^3/uL (1-3.4); LYMPHOCYTES % (AUTO) 21 % (22-44); MD NO; MEAN CORPUSCULAR HEMOGLOBIN 29.5 pg (27.5-34.5); MEAN CORPUSCULAR HGB CONC 33.7 g/dL (33.2-36.2); MEAN CORPUSCULAR VOLUME 87.6 fL (81-97); MEAN PLATELET VOLUME 8.1 fL (7.4-10.4); MONOCYTES # (AUTO) 0.51 x10^3/uL (0.2-0.8); MONOCYTES % (AUTO) 8 % (2-9); NEUTROPHILS # (AUTO) 4.16 x10^3/uL (1.8-6.8); NEUTROPHILS % (AUTO) 68 % (42-75); PLATELET COUNT 239 x10^3/uL (130-400); RED BLOOD COUNT 4.37 x10^6/uL (4.38-5.82); RED CELL DISTRIBUTION WIDTH 19.3 % (9.4-14.8)
[2017-11-16 05:48] LABS: INTERNATIONAL NORMALIZED RATIO 1.14 (0.93-1.1); PROTHROMBIN TIME 11.8 Seconds (9.6-11.5)
[2017-11-16 05:58] LABS: CHLORIDE 109 mmol/L (98-107)
[2017-11-16 06:11] LABS: ALANINE AMINOTRANSFERASE 19 U/L (12-78); ALBUMIN 3.7 g/dL (3.4-5.0); ALKALINE PHOSPHATASE 80 U/L (45-117); ANION GAP 9 mmol/L (5-15); BILIRUBIN,TOTAL 0.6 mg/dL (0.2-1.0); CALCIUM 8.8 mg/dL (8.5-10.1); CREATININE 0.73 mg/dL (0.7-1.3); TOTAL PROTEIN 7.4 g/dL (6.4-8.2)
[2017-11-16 06:50] VITALS: BP 122/83
[2017-11-16] MEDS: THIAMINE 100MG TABLET PO SCH (11:39)
[2017-11-16] MEDS: LEVETIRACETAM 500 MG TABLET PO SCH ×2 (11:39→20:44)
[2017-11-16] MEDS: FOLIC ACID 1 MG TABLET PO SCH (11:39)
[2017-11-16] MEDS: PANTOPRAZOLE 20MG TABLET PO SCH ×2 (11:40→20:44)
[2017-11-16] MEDS: MULTIVITAMIN 1 TABLET PO SCH (11:40)
[2017-11-16 12:19] VITALS: BP 104/84
[2017-11-16] MEDS ORDERED: WARFARIN 10 MG TABLET PO-COUM SCH (18:00)
[2017-11-16] MEDS ORDERED: NICOTINE 14MG/24 HR PATCH.TD24 ONE (18:38)
[2017-11-16] MEDS ORDERED: WARFARIN 5 MG TABLET PO-COUM ONE (18:55)
[2017-11-16] MEDS: NICOTINE 14MG/24 HR PATCH.TD24 TD SCH (18:57)
[2017-11-16] MEDS: BEER 12 OZ CAN PO SCH (18:57)
[2017-11-16 21:04] VITALS: BP 121/82
[2017-11-17 01:01] VITALS: BP 123/78
[2017-11-17 05:02] LABS: INTERNATIONAL NORMALIZED RATIO 1.3 (0.93-1.1); PROTHROMBIN TIME 13.4 Seconds (9.6-11.5)
[2017-11-17] MEDS: ACETAMINOPHEN 500 MG TABLET PO PRN (05:54)
[2017-11-17 07:10] VITALS: BP 119/79
[2017-11-17] MEDS: THIAMINE 100MG TABLET PO SCH (08:58)
[2017-11-17] MEDS: MULTIVITAMIN 1 TABLET PO SCH (08:58)
[2017-11-17] MEDS: LEVETIRACETAM 500 MG TABLET PO SCH (08:58)
[2017-11-17] MEDS: PANTOPRAZOLE 20MG TABLET PO SCH (08:58)
[2017-11-17] MEDS: FOLIC ACID 1 MG TABLET PO SCH (08:58)
[2017-11-17] MEDS: BEER 12 OZ CAN PO SCH ×2 (12:15→17:19)
[2017-11-17 15:25] VITALS: BP 131/84
[2017-11-17] MEDS ORDERED: ZIPRASIDONE 20 MG INJ IM ONE (15:30)
[2017-11-17] MEDS: NICOTINE 14MG/24 HR PATCH.TD24 TD SCH (17:19)
[2017-11-17 19:30] VITALS: BP 105/71
== END 2017-11-17 22:20 | disposition short-term general hospital (02) | DRG 896 ==
LOC: ED 23:37 → EDIP 11-12 01:34 → 4EST 11-12 02:09 → 4WST 11-14 11:45
PROVIDERS: ADMIT Hospitalist; ATTEND Hospitalist
DX: F10.239 Alcohol dependence with withdrawal, unspecified (principal); G93.40 Encephalopathy, unspecified; F10.229 Alcohol dependence with intoxication, unspecified; K92.0 Hematemesis; I11.0 Hypertensive heart disease with heart failure; I50.32 Chronic diastolic (congestive) heart failure; I69.351 Hemiplegia and hemiparesis following cerebral infarction affecting right dominant side; I69.354 Hemiplegia and hemiparesis following cerebral infarction affecting left non-dominant side; I82.509 Chronic embolism and thrombosis of unspecified deep veins of unspecified lower extremity; K92.2 Gastrointestinal hemorrhage, unspecified; D64.9 Anemia, unspecified; R79.1 Abnormal coagulation profile; Y90.8 Blood alcohol level of 240 mg/100 ml or more; Z72.0 Tobacco use; Z79.01 Long term (current) use of anticoagulants; Z82.49 Family history of ischemic heart disease and other diseases of the circulatory system; Z91.19 Patient's noncompliance with other medical treatment and regimen; Z87.11 Personal history of peptic ulcer disease
CPT/HCPCS: 36415; 74021; 80048; 80053; 80307; 81003; 83605; 83690; 83735; 84100; 85025; 85610; 85730; 86900; 93005; 96361; 96365; 96366; 96375; J2405; J3486; J7042; 92523-GN; C9113; J1630; J2060; J7030; Q0163

== ENCOUNTER 2018-06-01 18:24 | Emergency (ER) | payer OTHER ==
[~2018-06-01] VITALS: Ht 175.3 cm; Wt 76.0 kg
[~2018-06-01 18:24] MED LIST changes: +ALPR0.5T PO; +ALPR1TAB2 PO; -AMLO10TA2 PO; +AMLO10TA6 PO; -AMLO5TAB2 PO; +AMLO5TAB7 PO; -CITA20TA5 PO; +CITA20TA6 PO; -THIA100T6 PO; +THIA100T67 PO; +VARE0.5T PO; +WARF5TAB PO; +WARF7.5T46 PO-COUM; -WARF7.5T6 PO-COUM
[2018-06-01 20:33] LABS: BASOPHILS # (AUTO) 0.03 x10^3/uL (0-0.1); BASOPHILS % (AUTO) 0 % (0-1); EOSINOPHILS # (AUTO) 0.08 x10^3/uL (0-0.4); EOSINOPHILS % (AUTO) 1 % (1-7); LYMPHOCYTES # (AUTO) 1.71 x10^3/uL (1-3.4); LYMPHOCYTES % (AUTO) 21 % (22-44); MD NO; MEAN CORPUSCULAR HEMOGLOBIN 30.7 pg (27.5-34.5); MEAN CORPUSCULAR HGB CONC 33.7 g/dL (33.2-36.2); MEAN CORPUSCULAR VOLUME 91.3 fL (81-97); MEAN PLATELET VOLUME 7.8 fL (7.4-10.4); MONOCYTES # (AUTO) 0.43 x10^3/uL (0.2-0.8); MONOCYTES % (AUTO) 5 % (2-9); NEUTROPHILS # (AUTO) 6.13 x10^3/uL (1.8-6.8); NEUTROPHILS % (AUTO) 73 % (42-75); PLATELET COUNT 358 x10^3/uL (130-400); RED BLOOD COUNT 4.32 x10^6/uL (4.38-5.82); RED CELL DISTRIBUTION WIDTH 18.2 % (9.4-14.8)
[2018-06-01 20:35] LABS: ALBUMIN 3.4 g/dL (3.4-5.0); ANION GAP 12 mmol/L (5-15); CALCIUM 8.3 mg/dL (8.5-10.1); CHLORIDE 107 mmol/L (98-107); CREATININE 0.64 mg/dL (0.7-1.3)
[2018-06-01 21:31] VITALS: BP 115/72
== END 2018-06-01 22:44 | disposition home or self-care (01) ==
LOC: ED 21:12
DX: I82.512 Chronic embolism and thrombosis of left femoral vein (principal); L03.032 Cellulitis of left toe; Z86.73 Personal history of transient ischemic attack (TIA), and cerebral infarction without residual deficits; Z88.8 Allergy status to other drugs, medicaments and biological substances
CPT/HCPCS: 36415; 71045; 80048; 82040; 85025; 99285

== ENCOUNTER 2018-07-27 16:35 | Emergency (ER) | payer MEDICARE ==
[~2018-07-27] VITALS: Ht 175.3 cm; Wt 69.0 kg
[2018-07-27] MEDS ORDERED: FAMOTIDINE 20 MG TABLET PO ONE (17:00)
[2018-07-27 17:06] LABS: MICROSCOPIC NOT IND
[2018-07-27 17:10] LABS: CULTURE INDICATED? NO
[2018-07-27] MEDS ORDERED: FAMOTIDINE 20 MG TABLET ONE (17:24)
[2018-07-27] MEDS ORDERED: MAGNESIUM CITRATE 300ML ORAL SOL PO ONE (18:00)
[2018-07-27] MEDS ORDERED: MAGNESIUM CITRATE 300ML ORAL SOL ONE (18:00)
[2018-07-27 18:02] LABS: BASOPHILS # (AUTO) 0.04 x10^3/uL (0-0.1); BASOPHILS % (AUTO) 0 % (0-1); EOSINOPHILS # (AUTO) 0.04 x10^3/uL (0-0.4); EOSINOPHILS % (AUTO) 0 % (1-7); LYMPHOCYTES # (AUTO) 0.99 x10^3/uL (1-3.4); LYMPHOCYTES % (AUTO) 11 % (22-44); MD NO; MEAN CORPUSCULAR HGB CONC 32.9 g/dL (33.2-36.2); MEAN CORPUSCULAR VOLUME 91.2 fL (81-97); MEAN PLATELET VOLUME 7.2 fL (7.4-10.4); MONOCYTES # (AUTO) 0.54 x10^3/uL (0.2-0.8); MONOCYTES % (AUTO) 6 % (2-9); NEUTROPHILS # (AUTO) 7.76 x10^3/uL (1.8-6.8); NEUTROPHILS % (AUTO) 83 % (42-75); PLATELET COUNT 620 x10^3/uL (130-400); RED BLOOD COUNT 3.37 x10^6/uL (4.38-5.82); RED CELL DISTRIBUTION WIDTH 21.4 % (9.4-14.8)
[2018-07-27 18:13] LABS: ALANINE AMINOTRANSFERASE 13 U/L (12-78); ALBUMIN 3.4 g/dL (3.4-5.0); ANION GAP 10 mmol/L (5-15); CALCIUM 8.4 mg/dL (8.5-10.1); CHLORIDE 107 mmol/L (98-107); INTERNATIONAL NORMALIZED RATIO 0.97 (0.93-1.1); PROTHROMBIN TIME 10.3 Seconds (9.6-11.5)
[2018-07-27 18:16] LABS: ALKALINE PHOSPHATASE 82 U/L (45-117); BILIRUBIN,TOTAL 0.2 mg/dL (0.2-1.0); CREATININE 0.61 mg/dL (0.7-1.3); TOTAL PROTEIN 7.3 g/dL (6.4-8.2)
[2018-07-27 19:44] VITALS: BP 105/66
== END 2018-07-27 21:00 | disposition home or self-care (01) ==
LOC: ED 19:21
DX: R10.84 Generalized abdominal pain (principal); K59.00 Constipation, unspecified; I10 Essential (primary) hypertension; G40.909 Epilepsy, unspecified, not intractable, without status epilepticus; Z86.718 Personal history of other venous thrombosis and embolism
CPT/HCPCS: 36415; 74021; 80053; 81003; 83690; 85025; 85610; 85730; 99284

== ENCOUNTER 2018-08-08 01:30 | Inpatient (IN) | payer MEDICARE ==
[~2018-08-08] VITALS: Ht 175.3 cm; Wt 68.2 kg
[2018-08-08] VITALS (9 sets, daily range): BP systolic 90–108; BP diastolic 58–74
[~2018-08-08 01:30] MED LIST changes: +AMLO-150 PO; -AMLO5TAB7 PO
[2018-08-08] MEDS ORDERED: MAALOX/HYOSCYAMINE/LIDOCAINE 45 ML BTL ONE (01:43)
[2018-08-08] MEDS ORDERED: MAALOX/HYOSCYAMINE/LIDOCAINE 45 ML BTL PO ONE (02:00)
[2018-08-08 02:22] LABS: ALANINE AMINOTRANSFERASE 14 U/L (12-78); ALBUMIN 3.1 g/dL (3.4-5.0); ANION GAP 14 mmol/L (5-15); CALCIUM 8.7 mg/dL (8.5-10.1); CHLORIDE 94 mmol/L (98-107)
[2018-08-08 02:26] LABS: INTERNATIONAL NORMALIZED RATIO 0.94 (0.93-1.1)
[2018-08-08 02:31] LABS: ALKALINE PHOSPHATASE 92 U/L (45-117); BILIRUBIN,TOTAL 0.3 mg/dL (0.2-1.0); CREATININE 0.55 mg/dL (0.7-1.3); TOTAL PROTEIN 7.1 g/dL (6.4-8.2)
[2018-08-08 02:39] LABS: MD MORPH REVIEW ONLY
[2018-08-08 02:40] LABS: BASOPHILS # (AUTO) 0.12 x10^3/uL (0-0.1); BASOPHILS % (AUTO) 1 % (0-1); EOSINOPHILS # (AUTO) 0.03 x10^3/uL (0-0.4); EOSINOPHILS % (AUTO) 0 % (1-7); LYMPHOCYTES # (AUTO) 1.14 x10^3/uL (1-3.4); LYMPHOCYTES % (AUTO) 11 % (22-44); MEAN CORPUSCULAR HEMOGLOBIN 28.7 pg (27.5-34.5); MEAN CORPUSCULAR HGB CONC 32.3 g/dL (33.2-36.2); MEAN CORPUSCULAR VOLUME 88.8 fL (81-97); MEAN PLATELET VOLUME 7.6 fL (7.4-10.4); MONOCYTES # (AUTO) 0.41 x10^3/uL (0.2-0.8); MONOCYTES % (AUTO) 4 % (2-9); NEUTROPHILS # (AUTO) 8.61 x10^3/uL (1.8-6.8); NEUTROPHILS % (AUTO) 84 % (42-75); PLATELET COUNT 617 x10^3/uL (130-400); RED BLOOD COUNT 2.55 x10^6/uL (4.38-5.82); RED CELL DISTRIBUTION WIDTH 19.5 % (9.4-14.8)
[2018-08-08 02:42] LABS: ANISOCYTOSIS 1+; POLYCHROMASIA 1+
[2018-08-08 02:43] LABS: SCHISTOCYTES 1+
[2018-08-08 02:45] LABS: <PLATELET ESTIMATE> INCREASED; <PLT MORPHOLOGY> NORMAL PLT MORPH
[2018-08-08] MEDS ORDERED: PANTOPRAZOLE 40 MG IV IVPush ONE (03:00)
[2018-08-08] MEDS ORDERED: OCTREOTIDE 100MCG/ML, 1ML (0.1MG/ML) IV ONE ×2 (03:00→03:30)
[2018-08-08] MEDS ORDERED: PANTOPRAZOLE 40 MG IV ONE (03:03)
[2018-08-08] MEDS ORDERED: PANTOPRAZOLE 80 MG in SODIUM CHLORIDE 0.9% 100 ML IV SCH (03:04)
[2018-08-08] MEDS ORDERED: OCTREOTIDE 500 MCG in SODIUM CHLORIDE 0.9% 249 ML IV PRN (03:04)
[2018-08-08] MEDS ORDERED: OCTREOTIDE 100MCG/ML, 1ML (0.1MG/ML) ONE (03:44)
[2018-08-08] MEDS ORDERED: MORPHINE SULFATE 4 MG/ML, 1ML ONE (04:09)
[2018-08-08] MEDS ORDERED: morphine SULFATE 10 MG/ML, 1ML IVPush ONE (04:30)
[2018-08-08] MEDS ORDERED: POTASSIUM CHLORIDE 20 MEQ, MAGNESIUM SULFATE 2 GM, THIAMINE 200 MG, MVI ADULT 10 ML, FO... IV SCH (05:53)
[2018-08-08] MEDS ORDERED: LORazepam 2 MG/ML, 1ML IV PRN ×4 (06:00)
[2018-08-08] MEDS ORDERED: ONDANSETRON 2MG/ML, 2ML IVPush PRN (06:00)
[2018-08-08] MEDS ORDERED: PROMETHAZINE 25 MG/ML, 1ML IM PRN (06:00)
[2018-08-08] MEDS ORDERED: OCTREOTIDE 500 MCG in SODIUM CHLORIDE 0.9% 249 ML IV SCH (06:00)
[2018-08-08] MEDS: NS + 20MEQ KCL 1,000 ML IV SCH (07:16)
[2018-08-08] MEDS: NICOTINE 14MG/24 HR PATCH.TD24 TD SCH (07:16)
[2018-08-08] MEDS: CEFTRIAXONE PMX 1GM/50ML 50 ML IV SCH (07:16)
[2018-08-08] MEDS: LEVETIRACETAM 1,000 MG in SODIUM CHLORIDE 0.9% 100 ML IV SCH ×2 (08:12→21:48)
[2018-08-08] MEDS ORDERED: MIDAZOLAM 1 MG/ML, 5ML ONE ×2 (08:31)
[2018-08-08] MEDS ORDERED: FENTANYL PF 100 MCG/2ML ONE (08:31)
[2018-08-08] MEDS ORDERED: EPINEPHRINE SYRINGE 0.1 MG/ML, 10ML ONE (10:21)
[2018-08-08] MEDS: PANTOPRAZOLE 80 MG in SODIUM CHLORIDE 0.9% 100 ML IV SCH (12:35)
[2018-08-08] MEDS: LORazepam 2 MG/ML, 1ML IV PRN (14:12)
[2018-08-09] VITALS (14 sets, daily range): BP systolic 99–116; BP diastolic 65–83
[2018-08-09] MEDS: NS + 20MEQ KCL 1,000 ML IV SCH ×3 (00:10→20:00)
[2018-08-09] MEDS: PANTOPRAZOLE 80 MG in SODIUM CHLORIDE 0.9% 100 ML IV SCH ×3 (00:33→23:19)
[2018-08-09] MEDS ORDERED: POTASSIUM CHLORIDE 20 MEQ, MAGNESIUM SULFATE 2 GM, THIAMINE 200 MG, MVI ADULT 10 ML, FO... IV SCH ×2 (01:30→12:00)
[2018-08-09] MEDS: LORazepam 2 MG/ML, 1ML IV PRN ×4 (01:46→17:04)
[2018-08-09 05:22] LABS: CHLORIDE 105 mmol/L (98-107)
[2018-08-09 05:30] LABS: ALANINE AMINOTRANSFERASE 9 U/L (12-78); ALBUMIN 2.1 g/dL (3.4-5.0); ALKALINE PHOSPHATASE 64 U/L (45-117); ANION GAP 8 mmol/L (5-15); BILIRUBIN,TOTAL 0.6 mg/dL (0.2-1.0); CALCIUM 7.4 mg/dL (8.5-10.1); CREATININE 0.44 mg/dL (0.7-1.3)
[2018-08-09 05:53] LABS: MEAN CORPUSCULAR HEMOGLOBIN 29.9 pg (27.5-34.5); MEAN CORPUSCULAR VOLUME 90.9 fL (81-97); MEAN PLATELET VOLUME 7.6 fL (7.4-10.4); PLATELET COUNT 399 x10^3/uL (130-400); RED BLOOD COUNT 2.37 x10^6/uL (4.38-5.82); RED CELL DISTRIBUTION WIDTH 18.3 % (9.4-14.8)
[2018-08-09 06:29] LABS: BASOPHILS # (AUTO) 0.01 x10^3/uL (0-0.1); BASOPHILS % (AUTO) 0 % (0-1); EOSINOPHILS # (AUTO) 0.08 x10^3/uL (0-0.4); EOSINOPHILS % (AUTO) 1 % (1-7); LYMPHOCYTES # (AUTO) 0.94 x10^3/uL (1-3.4); LYMPHOCYTES % (AUTO) 16 % (22-44); MD SCAN; MONOCYTES # (AUTO) 0.46 x10^3/uL (0.2-0.8); MONOCYTES % (AUTO) 8 % (2-9); NEUTROPHILS # (AUTO) 4.44 x10^3/uL (1.8-6.8); NEUTROPHILS % (AUTO) 75 % (42-75)
[2018-08-09] MEDS: CEFTRIAXONE PMX 1GM/50ML 50 ML IV SCH (07:35)
[2018-08-09] MEDS: NICOTINE 14MG/24 HR PATCH.TD24 TD SCH (07:35)
[2018-08-09] MEDS ORDERED: SODIUM PHOSPHATE 20 MMOL in SODIUM CHLORIDE 0.9% 500 ML IV ONE (08:30)
[2018-08-09] MEDS: LEVETIRACETAM 500 MG TABLET PO SCH ×2 (11:29→22:47)
[2018-08-09] MEDS ORDERED: LIDOCAINE-MPF 1%, 5ML ONE (11:33)
[2018-08-10] MEDS: LORazepam 2 MG/ML, 1ML IV PRN (00:38)
[2018-08-10 02:09] VITALS: BP 105/79
[2018-08-10] MEDS: NS + 20MEQ KCL 1,000 ML IV SCH (04:10)
[2018-08-10 05:41] LABS: BASOPHILS # (AUTO) 0.02 x10^3/uL (0-0.1); BASOPHILS % (AUTO) 0 % (0-1); EOSINOPHILS # (AUTO) 0.06 x10^3/uL (0-0.4); EOSINOPHILS % (AUTO) 1 % (1-7); LYMPHOCYTES # (AUTO) 0.88 x10^3/uL (1-3.4); LYMPHOCYTES % (AUTO) 17 % (22-44); MD NO; MEAN CORPUSCULAR HEMOGLOBIN 29.1 pg (27.5-34.5); MEAN CORPUSCULAR HGB CONC 32.7 g/dL (33.2-36.2); MEAN CORPUSCULAR VOLUME 88.9 fL (81-97); MEAN PLATELET VOLUME 7.7 fL (7.4-10.4); MONOCYTES # (AUTO) 0.61 x10^3/uL (0.2-0.8); MONOCYTES % (AUTO) 12 % (2-9); NEUTROPHILS # (AUTO) 3.56 x10^3/uL (1.8-6.8); NEUTROPHILS % (AUTO) 70 % (42-75); PLATELET COUNT 399 x10^3/uL (130-400)
[2018-08-10 05:45] LABS: ALBUMIN 1.9 g/dL (3.4-5.0); ANION GAP 7 mmol/L (5-15); CALCIUM 7.4 mg/dL (8.5-10.1); CHLORIDE 109 mmol/L (98-107)
[2018-08-10 05:46] LABS: CREATININE 0.45 mg/dL (0.7-1.3)
[2018-08-10] MEDS: NICOTINE 14MG/24 HR PATCH.TD24 TD SCH (06:25)
[2018-08-10] MEDS: CEFTRIAXONE PMX 1GM/50ML 50 ML IV SCH (06:26)
[2018-08-10 07:00] VITALS: BP 119/80
[2018-08-10] MEDS: LEVETIRACETAM 500 MG TABLET PO SCH ×2 (08:02→21:36)
[2018-08-10] MEDS: PANTOPRAZOLE 80 MG in SODIUM CHLORIDE 0.9% 100 ML IV SCH (08:37)
[2018-08-10] MEDS: CHLORDIAZEPOXIDE 25 MG CAPSULE PO SCH ×3 (09:30→21:36)
[2018-08-10 11:17] VITALS: BP 112/77
[2018-08-10 12:15] VITALS: BP 114/79
[2018-08-10] MEDS: PANTOPROZOLE 40MG TABLET PO SCH (17:00)
[2018-08-10 19:54] VITALS: BP 113/79
[2018-08-10] MEDS: SUCRALFATE 1 GM/10 ML UDC PO SCH (21:00)
[2018-08-10] MEDS ORDERED: ALUMINUM/MAG/SIMETHICONE 30 ML UDC ONE (21:10)
[2018-08-10] MEDS ORDERED: HYDROcodone/APAP 5/325 TABLET PO ONE (21:30)
[2018-08-10] MEDS: ALUMINUM/MAG/SIMETHICONE 30 ML UDC PO PRN (21:37)
[2018-08-11 02:24] VITALS: BP 118/68
[2018-08-11 05:00] LABS: ALANINE AMINOTRANSFERASE 13 U/L (12-78); ANION GAP 8 mmol/L (5-15); CALCIUM 7.3 mg/dL (8.5-10.1); CHLORIDE 106 mmol/L (98-107); CREATININE 0.41 mg/dL (0.7-1.3)
[2018-08-11 05:02] LABS: ALKALINE PHOSPHATASE 70 U/L (45-117); BILIRUBIN,TOTAL 0.2 mg/dL (0.2-1.0); TOTAL PROTEIN 5.1 g/dL (6.4-8.2)
[2018-08-11 05:04] LABS: BASOPHILS # (AUTO) 0.02 x10^3/uL (0-0.1); BASOPHILS % (AUTO) 0 % (0-1); EOSINOPHILS # (AUTO) 0.14 x10^3/uL (0-0.4); EOSINOPHILS % (AUTO) 2 % (1-7); LYMPHOCYTES # (AUTO) 0.98 x10^3/uL (1-3.4); LYMPHOCYTES % (AUTO) 17 % (22-44); MD NO; MEAN CORPUSCULAR HEMOGLOBIN 29.4 pg (27.5-34.5); MEAN CORPUSCULAR HGB CONC 33.2 g/dL (33.2-36.2); MEAN CORPUSCULAR VOLUME 88.4 fL (81-97); MEAN PLATELET VOLUME 7.7 fL (7.4-10.4); MONOCYTES # (AUTO) 0.62 x10^3/uL (0.2-0.8); MONOCYTES % (AUTO) 11 % (2-9); NEUTROPHILS # (AUTO) 3.93 x10^3/uL (1.8-6.8); NEUTROPHILS % (AUTO) 69 % (42-75); PLATELET COUNT 404 x10^3/uL (130-400); RED BLOOD COUNT 3.18 x10^6/uL (4.38-5.82); RED CELL DISTRIBUTION WIDTH 19.7 % (9.4-14.8)
[2018-08-11] MEDS: PANTOPROZOLE 40MG TABLET PO SCH ×2 (05:19→15:57)
[2018-08-11] MEDS: NICOTINE 14MG/24 HR PATCH.TD24 TD SCH (05:19)
[2018-08-11 05:47] LABS: CLOSTRIDIUM DIFFICILE ANTIGEN NEGATIVE; CLOSTRIDIUM DIFFICILE TOXIN NEGATIVE (Negative)
[2018-08-11] MEDS: POTASSIUM CHLORIDE 20 MEQ, MAGNESIUM SULFATE 1 GM, FOLIC ACID 1 MG, THIAMINE 200 MG, MV... IV SCH (06:14)
[2018-08-11] MEDS: CEFTRIAXONE PMX 1GM/50ML 50 ML IV SCH (06:14)
[2018-08-11] MEDS: SUCRALFATE 1 GM/10 ML UDC PO SCH ×2 (07:52→15:57)
[2018-08-11] MEDS: LEVETIRACETAM 500 MG TABLET PO SCH ×2 (07:53→20:33)
[2018-08-11] MEDS: LORazepam 2 MG/ML, 1ML IV PRN ×2 (07:53→15:57)
[2018-08-11] MEDS: CHLORDIAZEPOXIDE 25 MG CAPSULE PO SCH ×3 (07:53→20:33)
[2018-08-11 08:00] VITALS: BP 108/72
[2018-08-11] MEDS ORDERED: LOPERAMIDE 2 MG CAPSULE PO ONE (09:00)
[2018-08-11 14:00] VITALS: BP 124/87
[2018-08-11 18:54] VITALS: BP 104/71
[2018-08-12 00:30] VITALS: BP 104/69
[2018-08-12] MEDS: POTASSIUM CHLORIDE 20 MEQ, MAGNESIUM SULFATE 1 GM, FOLIC ACID 1 MG, THIAMINE 200 MG, MV... IV SCH (06:10)
[2018-08-12] MEDS: PANTOPROZOLE 40MG TABLET PO SCH ×2 (06:10→18:29)
[2018-08-12] MEDS: NICOTINE 14MG/24 HR PATCH.TD24 TD SCH (06:10)
[2018-08-12] MEDS: CEFTRIAXONE PMX 1GM/50ML 50 ML IV SCH (06:10)
[2018-08-12 06:32] LABS: BASOPHILS # (AUTO) 0.03 x10^3/uL (0-0.1); BASOPHILS % (AUTO) 1 % (0-1); EOSINOPHILS # (AUTO) 0.16 x10^3/uL (0-0.4); EOSINOPHILS % (AUTO) 2 % (1-7); LYMPHOCYTES # (AUTO) 1.15 x10^3/uL (1-3.4); LYMPHOCYTES % (AUTO) 17 % (22-44); MD NO; MEAN CORPUSCULAR HEMOGLOBIN 29.8 pg (27.5-34.5); MEAN CORPUSCULAR HGB CONC 33.3 g/dL (33.2-36.2); MEAN CORPUSCULAR VOLUME 89.5 fL (81-97); MEAN PLATELET VOLUME 7.6 fL (7.4-10.4); MONOCYTES # (AUTO) 0.81 x10^3/uL (0.2-0.8); MONOCYTES % (AUTO) 12 % (2-9); NEUTROPHILS # (AUTO) 4.68 x10^3/uL (1.8-6.8); NEUTROPHILS % (AUTO) 69 % (42-75); PLATELET COUNT 394 x10^3/uL (130-400); RED BLOOD COUNT 3.26 x10^6/uL (4.38-5.82); RED CELL DISTRIBUTION WIDTH 20.5 % (9.4-14.8)
[2018-08-12 06:34] LABS: ANION GAP 7 mmol/L (5-15); CALCIUM 8.1 mg/dL (8.5-10.1); CHLORIDE 109 mmol/L (98-107)
[2018-08-12 06:37] LABS: ALANINE AMINOTRANSFERASE 14 U/L (12-78); ALKALINE PHOSPHATASE 66 U/L (45-117); BILIRUBIN,TOTAL 0.3 mg/dL (0.2-1.0); CREATININE 0.39 mg/dL (0.7-1.3); TOTAL PROTEIN 5.3 g/dL (6.4-8.2)
[2018-08-12 07:02] VITALS: BP 95/65
[2018-08-12] MEDS: CHLORDIAZEPOXIDE 25 MG CAPSULE PO SCH ×2 (09:27→22:00)
[2018-08-12] MEDS: SUCRALFATE 1 GM/10 ML UDC PO SCH ×2 (09:27→18:29)
[2018-08-12] MEDS: LEVETIRACETAM 500 MG TABLET PO SCH ×2 (09:27→22:00)
[2018-08-12] MEDS: ALUMINUM/MAG/SIMETHICONE 30 ML UDC PO PRN (09:31)
[2018-08-12 13:43] VITALS: BP 99/68
[2018-08-12 19:08] VITALS: BP 143/78
[2018-08-12 20:17] VITALS: BP 108/74
[2018-08-13 00:32] VITALS: BP 108/71
[2018-08-13 04:57] LABS: ALBUMIN 2.1 g/dL (3.4-5.0); ANION GAP 7 mmol/L (5-15); CHLORIDE 108 mmol/L (98-107); CREATININE 0.55 mg/dL (0.7-1.3)
[2018-08-13] MEDS: PANTOPROZOLE 40MG TABLET PO SCH ×2 (05:00→16:30)
[2018-08-13 05:04] LABS: BASOPHILS # (AUTO) 0.03 x10^3/uL (0-0.1); BASOPHILS % (AUTO) 1 % (0-1); EOSINOPHILS # (AUTO) 0.27 x10^3/uL (0-0.4); EOSINOPHILS % (AUTO) 5 % (1-7); LYMPHOCYTES # (AUTO) 1.29 x10^3/uL (1-3.4); LYMPHOCYTES % (AUTO) 23 % (22-44); MD NO; MEAN CORPUSCULAR HEMOGLOBIN 29.1 pg (27.5-34.5); MEAN CORPUSCULAR HGB CONC 32.6 g/dL (33.2-36.2); MEAN CORPUSCULAR VOLUME 89.2 fL (81-97); MEAN PLATELET VOLUME 7.3 fL (7.4-10.4); MONOCYTES # (AUTO) 0.65 x10^3/uL (0.2-0.8); MONOCYTES % (AUTO) 11 % (2-9); NEUTROPHILS # (AUTO) 3.45 x10^3/uL (1.8-6.8); NEUTROPHILS % (AUTO) 61 % (42-75); PLATELET COUNT 442 x10^3/uL (130-400); RED BLOOD COUNT 3.08 x10^6/uL (4.38-5.82); RED CELL DISTRIBUTION WIDTH 19.6 % (9.4-14.8)
[2018-08-13] MEDS: ALUMINUM/MAG/SIMETHICONE 30 ML UDC PO PRN (06:06)
[2018-08-13] MEDS: CEFTRIAXONE PMX 1GM/50ML 50 ML IV SCH (06:06)
[2018-08-13] MEDS: NICOTINE 14MG/24 HR PATCH.TD24 TD SCH (06:06)
[2018-08-13 07:55] VITALS: BP 104/69
[2018-08-13] MEDS: SUCRALFATE 1 GM/10 ML UDC PO SCH ×2 (08:04→16:30)
[2018-08-13] MEDS ORDERED: CHLORDIAZEPOXIDE 25 MG CAPSULE PO SCH (09:00)
[2018-08-13] MEDS: LEVETIRACETAM 500 MG TABLET PO SCH ×2 (09:02→21:02)
[2018-08-13 13:44] VITALS: BP 93/66
[2018-08-13 19:38] VITALS: BP 91/61
[2018-08-14 01:00] VITALS: BP 99/67
[2018-08-14] MEDS: PANTOPROZOLE 40MG TABLET PO SCH (04:19)
[2018-08-14 04:39] LABS: BASOPHILS # (AUTO) 0.03 x10^3/uL (0-0.1); BASOPHILS % (AUTO) 1 % (0-1); EOSINOPHILS # (AUTO) 0.16 x10^3/uL (0-0.4); EOSINOPHILS % (AUTO) 3 % (1-7); LYMPHOCYTES # (AUTO) 1.28 x10^3/uL (1-3.4); LYMPHOCYTES % (AUTO) 20 % (22-44); MD NO; MEAN CORPUSCULAR HEMOGLOBIN 28.2 pg (27.5-34.5); MEAN CORPUSCULAR HGB CONC 31.7 g/dL (33.2-36.2); MEAN CORPUSCULAR VOLUME 89.1 fL (81-97); MEAN PLATELET VOLUME 7.3 fL (7.4-10.4); MONOCYTES # (AUTO) 0.67 x10^3/uL (0.2-0.8); MONOCYTES % (AUTO) 10 % (2-9); NEUTROPHILS # (AUTO) 4.33 x10^3/uL (1.8-6.8); NEUTROPHILS % (AUTO) 67 % (42-75); PLATELET COUNT 475 x10^3/uL (130-400); RED BLOOD COUNT 3.23 x10^6/uL (4.38-5.82); RED CELL DISTRIBUTION WIDTH 19.4 % (9.4-14.8)
[2018-08-14 04:49] LABS: ALBUMIN 2.3 g/dL (3.4-5.0); ANION GAP 7 mmol/L (5-15); CALCIUM 7.9 mg/dL (8.5-10.1); CHLORIDE 109 mmol/L (98-107)
[2018-08-14] MEDS: CEFTRIAXONE PMX 1GM/50ML 50 ML IV SCH (06:05)
[2018-08-14] MEDS: NICOTINE 14MG/24 HR PATCH.TD24 TD SCH (06:06)
[2018-08-14 07:15] VITALS: BP 95/64
[2018-08-14] MEDS ORDERED: MAGNESIUM HYDROXIDE 8%, 30ML UDC PO PRN (09:00)
[2018-08-14] MEDS: SUCRALFATE 1 GM/10 ML UDC PO SCH (09:06)
[2018-08-14] MEDS: LEVETIRACETAM 500 MG TABLET PO SCH (09:06)
[2018-08-14] MEDS ORDERED: PANT40TA5 PO (11:09)
[2018-08-14] MEDS ORDERED: FOLI-17 PO (11:09)
[2018-08-14] MEDS ORDERED: THIA100T10 PO (11:09)
[2018-08-14] MEDS ORDERED: SUCR1ORA5 PO (11:09)
[2018-08-14 12:40] VITALS: BP 96/66
[2018-08-14] MEDS ORDERED: BISACODYL 10 MG SUPP ONE (13:23)
[2018-08-14] MEDS ORDERED: BISACODYL 10 MG SUPP PR PRN (13:30)
== END 2018-08-14 16:24 | DRG 369 ==
LOC: ED 02:05 → EDIP 02:57 → 4NOR 04:48 → 4WST 08-10 10:43
PROVIDERS: ADMIT Hospitalist; ATTEND Hospitalist
PROC: 3E0G8GC Introduction of Other Therapeutic Substance into Upper GI, Via Natural or Artificial Opening Endoscopic (ICD-10-PCS; 2018-08-08)
PROC: 0W3P8ZZ Control Bleeding in Gastrointestinal Tract, Via Natural or Artificial Opening Endoscopic (ICD-10-PCS; 2018-08-08)
PROC: 30233N1 Transfusion of Nonautologous Red Blood Cells into Peripheral Vein, Percutaneous Approach (ICD-10-PCS; 2018-08-08)
PROC: 02HV33Z Insertion of Infusion Device into Superior Vena Cava, Percutaneous Approach (ICD-10-PCS; principal; 2018-08-09)
PROC: B548ZZA Ultrasonography of Superior Vena Cava, Guidance (ICD-10-PCS; 2018-08-09)
PROC: B5181ZA Fluoroscopy of Superior Vena Cava using Low Osmolar Contrast, Guidance (ICD-10-PCS; 2018-08-09)
DX: I85.01 Esophageal varices with bleeding (principal); D62 Acute posthemorrhagic anemia; K22.10 Ulcer of esophagus without bleeding; E46 Unspecified protein-calorie malnutrition; F10.239 Alcohol dependence with withdrawal, unspecified; I82.502 Chronic embolism and thrombosis of unspecified deep veins of left lower extremity; F10.221 Alcohol dependence with intoxication delirium; F10.231 Alcohol dependence with withdrawal delirium; I69.354 Hemiplegia and hemiparesis following cerebral infarction affecting left non-dominant side; K26.9 Duodenal ulcer, unspecified as acute or chronic, without hemorrhage or perforation; E87.6 Hypokalemia; F17.200 Nicotine dependence, unspecified, uncomplicated; G40.909 Epilepsy, unspecified, not intractable, without status epilepticus; I11.0 Hypertensive heart disease with heart failure; I50.9 Heart failure, unspecified; Z91.19 Patient's noncompliance with other medical treatment and regimen; Z87.11 Personal history of peptic ulcer disease; Z79.899 Other long term (current) drug therapy; Z68.22 Body mass index [BMI] 22.0-22.9, adult
CPT/HCPCS: 36415; 36569; 70450; 76937; 77001; 80048; 80053; 82040; 83690; 83735; 84100; 85014; 85018; 85025; 85610; 86850; 86900; 86923; 87324; 93005; 99152; 99153; 99285; G0378; J0696; J1953; J2250; J2354; J3010; J3411; J3475; J3480; J7042; C1751; C9113; J2060; J2270; J7040; J7050; J7121; P9016

== ENCOUNTER 2018-08-26 11:17 | Emergency (ER) | payer MEDICARE ==
[~2018-08-26] VITALS: Ht 175.3 cm; Wt 63.0 kg
[~2018-08-26 11:17] MED LIST changes: +SUCR1ORA5 PO; +THIA100T10 PO
[2018-08-26] MEDS ORDERED: SODIUM CHLORIDE FLUSH 10ML SYR IVF ONE (12:00)
[2018-08-26] MEDS ORDERED: SODIUM CHLORIDE 0.9% 1,000ML IVBOLUS ONE (12:00)
[2018-08-26 12:08] LABS: ALANINE AMINOTRANSFERASE 21 U/L (12-78); ALBUMIN 3.4 g/dL (3.4-5.0); ANION GAP 9 mmol/L (5-15); CALCIUM 8.3 mg/dL (8.5-10.1); CHLORIDE 113 mmol/L (98-107); CREATININE 0.61 mg/dL (0.7-1.3)
[2018-08-26 12:11] LABS: ALKALINE PHOSPHATASE 67 U/L (45-117); BILIRUBIN,TOTAL 0.4 mg/dL (0.2-1.0); TOTAL PROTEIN 7.4 g/dL (6.4-8.2)
[2018-08-26 12:13] LABS: BASOPHILS # (AUTO) 0.04 x10^3/uL (0-0.1); BASOPHILS % (AUTO) 0 % (0-1); EOSINOPHILS % (AUTO) 2 % (1-7); LYMPHOCYTES # (AUTO) 0.73 x10^3/uL (1-3.4); LYMPHOCYTES % (AUTO) 7 % (22-44); MD NO; MEAN CORPUSCULAR HEMOGLOBIN 27.7 pg (27.5-34.5); MEAN CORPUSCULAR VOLUME 86.5 fL (81-97); MEAN PLATELET VOLUME 7.5 fL (7.4-10.4); MONOCYTES # (AUTO) 0.59 x10^3/uL (0.2-0.8); MONOCYTES % (AUTO) 5 % (2-9); NEUTROPHILS # (AUTO) 9.55 x10^3/uL (1.8-6.8); NEUTROPHILS % (AUTO) 86 % (42-75); PLATELET COUNT 604 x10^3/uL (130-400); RED BLOOD COUNT 3.78 x10^6/uL (4.38-5.82); RED CELL DISTRIBUTION WIDTH 18.3 % (9.4-14.8)
[2018-08-26 12:59] VITALS: BP 98/62
== END 2018-08-26 14:51 | disposition home or self-care (01) ==
LOC: ED 11:36
DX: R12 Heartburn (principal); Z86.718 Personal history of other venous thrombosis and embolism; I10 Essential (primary) hypertension; I11.0 Hypertensive heart disease with heart failure; I50.9 Heart failure, unspecified; Z86.73 Personal history of transient ischemic attack (TIA), and cerebral infarction without residual deficits
CPT/HCPCS: 36415; 74176; 80053; 83690; 83735; 85025; 99284

== ENCOUNTER 2018-09-23 13:35 | Emergency (ER) | payer MEDICARE, OTHER ==
[~2018-09-23] VITALS: Ht 175.3 cm; Wt 75.0 kg
[~2018-09-23 13:35] MED LIST changes: -AMLO10TA6 PO; +AMLO10TA8 PO
--- NOTE | 2018-09-23 13:52 | NUR ---
Pt BIB EMS from home for pin to LLE. Pt states he injured the 1st digit on LLE about 1 week ago after falling. Scab noted to that toe. 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 Pt also states that he "has feelings" before he has a sz and that he has those feeling now. Pt requesting keppra stating that he has not had it in over a week because he ran out. Pt NAD at this time.
[2018-09-23 14:24] LABS: BASOPHILS # (AUTO) 0.02 x10^3/uL (0-0.1); BASOPHILS % (AUTO) 1 % (0-1); EOSINOPHILS # (AUTO) 0.08 x10^3/uL (0-0.4); EOSINOPHILS % (AUTO) 3 % (1-7); LYMPHOCYTES % (AUTO) 19 % (22-44); MD NO; MEAN CORPUSCULAR HEMOGLOBIN 27.2 pg (27.5-34.5); MEAN CORPUSCULAR HGB CONC 32.1 g/dL (33.2-36.2); MEAN CORPUSCULAR VOLUME 84.6 fL (81-97); MEAN PLATELET VOLUME 7.3 fL (7.4-10.4); MONOCYTES % (AUTO) 7 % (2-9); NEUTROPHILS # (AUTO) 2.22 x10^3/uL (1.8-6.8); NEUTROPHILS % (AUTO) 71 % (42-75); PLATELET COUNT 309 x10^3/uL (130-400); RED BLOOD COUNT 4.77 x10^6/uL (4.38-5.82); RED CELL DISTRIBUTION WIDTH 18.2 % (9.4-14.8)
[2018-09-23 14:37] LABS: ALBUMIN 3.8 g/dL (3.4-5.0); ANION GAP 6 mmol/L (5-15); CALCIUM 8.9 mg/dL (8.5-10.1); CHLORIDE 107 mmol/L (98-107)
[2018-09-23 14:38] LABS: CREATININE 0.58 mg/dL (0.7-1.3)
[2018-09-23] MEDS ORDERED: LIDOCAINE-MPF 1%, 5ML ONE (15:10)
[2018-09-23] MEDS ORDERED: LIDOCAINE 1%, 10ML INFIL ONE (15:30)
--- NOTE | 2018-09-23 16:11 | NUR ---
erich rn: ID set up completed at this time. Lido at bedside.
--- NOTE | 2018-09-23 16:21 | NUR ---
erich rn: id compelted and dressed per md with 4x4.
[2018-09-23] MEDS ORDERED: OXYcodone/APAP 5/325MG TABLET PO ONE (16:30)
[2018-09-23 16:37] VITALS: BP 104/63
[2018-09-23] MEDS ORDERED: OXYcodone/APAP 5/325MG TABLET ONE (16:42)
--- NOTE | 2018-09-23 17:29 | NUR ---
NOEMI Anderson has requested [facility] pickup for patient r/t no wheelchair present and patient unable to contact friends/family for help. This RN has spoken with Michelle social science teacher, she has provided Cell number [phone], this RN has left a message.
--- NOTE | 2018-09-23 17:42 | NUR ---
Spoke with pt partner Zeferino who says that if pt goes home by taxi, he can meet him with WC. Pt agrees to plan.
== END 2018-09-23 17:48 | disposition home or self-care (01) ==
LOC: ED 14:25
DX: L89.151 Pressure ulcer of sacral region, stage 1 (principal); L03.116 Cellulitis of left lower limb; G89.29 Other chronic pain; M79.672 Pain in left foot; M79.662 Pain in left lower leg; I10 Essential (primary) hypertension; F17.200 Nicotine dependence, unspecified, uncomplicated; Z86.73 Personal history of transient ischemic attack (TIA), and cerebral infarction without residual deficits; Z86.718 Personal history of other venous thrombosis and embolism; Z72.9 Problem related to lifestyle, unspecified
CPT/HCPCS: 36415; 80048; 82040; 85025; 99284

== ENCOUNTER 2018-11-24 16:28 | Inpatient (IN) | payer OTHER ==
[~2018-11-24] VITALS: Ht 170.2 cm; Wt 58.6 kg
[2018-11-24] MEDS ORDERED: SODIUM CHLORIDE FLUSH 10ML SYR IVF ONE (17:00)
[2018-11-24] MEDS ORDERED: MORPHINE SULFATE 4 MG/ML, 1ML IVPush PRN (17:00)
[2018-11-24] MEDS ORDERED: SODIUM CHLORIDE 0.9% 1,000ML IVBOLUS ONE (17:00)
[2018-11-24] MEDS ORDERED: ONDANSETRON 2MG/ML, 2ML IVPush ONE (17:00)
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
--- NOTE | 2018-11-24 17:16 | NUR ---
SJ ABRAHAM AT BEDSIDE.
[2018-11-24] MEDS ORDERED: ONDANSETRON 2MG/ML, 2ML ONE (17:31)
[2018-11-24] MEDS ORDERED: MORPHINE SULFATE 4 MG/ML, 1ML ONE (17:31)
--- NOTE | 2018-11-24 17:36 | NUR ---
PT TAKEN TO CT.
[2018-11-24 17:49] LABS: EOSINOPHILS % (AUTO) 0 % (1-7); MD NO; MEAN CORPUSCULAR VOLUME 85.2 fL (81-97)
[2018-11-24 18:03] LABS: BASOPHILS % (AUTO) 0 % (0-1); LYMPHOCYTES # (AUTO) 0.64 x10^3/uL (1-3.4); LYMPHOCYTES % (AUTO) 5 % (22-44); MEAN CORPUSCULAR HEMOGLOBIN 28.1 pg (27.5-34.5); MEAN CORPUSCULAR HGB CONC 32.9 g/dL (33.2-36.2); MEAN PLATELET VOLUME 8.2 fL (7.4-10.4); MONOCYTES # (AUTO) 0.86 x10^3/uL (0.2-0.8); MONOCYTES % (AUTO) 7 % (2-9); NEUTROPHILS # (AUTO) 10.32 x10^3/uL (1.8-6.8); NEUTROPHILS % (AUTO) 87 % (42-75); PLATELET COUNT 519 x10^3/uL (130-400)
[2018-11-24 18:07] LABS: ALANINE AMINOTRANSFERASE 42 U/L (12-78); ALBUMIN 2.8 g/dL (3.4-5.0); ANION GAP 9 mmol/L (5-15); CALCIUM 9.2 mg/dL (8.5-10.1); CHLORIDE 124 mmol/L (98-107); CREATININE 1.06 mg/dL (0.7-1.3)
[2018-11-24 18:10] LABS: ALKALINE PHOSPHATASE 87 U/L (45-117); BILIRUBIN,TOTAL 0.6 mg/dL (0.2-1.0); TOTAL PROTEIN 7.6 g/dL (6.4-8.2)
[2018-11-24] MEDS ORDERED: CEFAZOLIN PMX 1GM/50ML 50 ML ONE (18:11)
--- NOTE | 2018-11-24 18:15 | NUR ---
PT RESTING ON . MEDICATED PER NOV. REPOSITIONED ON DRURY.
[2018-11-24] MEDS ORDERED: CEFAZOLIN PMX 1GM/50ML 50 ML IV ONE (18:30)
[2018-11-24 18:39] LABS: CREATINE KINASE, TOTAL 2074 U/L (39-308)
[2018-11-24 18:50] LABS: MICROSCOPIC INDICATED
[2018-11-24 18:53] LABS: CULTURE INDICATED? NO
[2018-11-24] MEDS ORDERED: D5%-0.45% NACL 1,000 ML IV SCH (19:00)
[2018-11-24 19:01] LABS: AMPHETAMINE SCREEN, URINE Negative (Negative); BARBITURATE SCREEN, URINE Negative (Negative); BENZODIAZEPINE SCREEN, URINE Positive (Negative); CANNABINOID SCREEN, URINE Negative (Negative); COCAINE SCREEN, URINE Negative (Negative); METHADONE SCREEN, URINE Negative (Negative); OPIATE SCREEN, URINE Positive (Negative)
--- NOTE | 2018-11-24 19:01 | NUR ---
RECEIVED REPORT MARGARET AND ASSUMED CARE. MULTIPLE WOUNDS CLEANED BY MARGARET WITH DRESSINGS PLACED. PT PLACED ON [facility].
--- NOTE | 2018-11-24 19:07 | NUR ---
REPORT GIVEN TO NOEMI MENA.
--- NOTE | 2018-11-24 19:08 | NUR ---
WOUND DRESSINGS COMPLETED ON PT THROUGHOUT. UNABLE TO OBTAIN PHOTOS OF WOUNDS SECONDARY TO NO FUNCTIONAL CAMERA. PT REPOSITIONED ON MOOKIE. JACKIE. WAFFLE CUSHION PLACED UNDER PT.
--- NOTE | 2018-11-24 20:34 | NUR ---
REPORT TO SHANNON FRANKLIN. DESCRIBED THAT PT IS CONFUSED BUT NOT TRYING TO GET OUT OF BED. DESCRIBED MUTIPLE WOUNDS WITH DRESSINGS. PT TO BE TRANSPORTED TO THE FLOOR
--- NOTE | 2018-11-24 20:37 | NUR ---
HOSPITALIST AT BEDSIDE
[2018-11-24] MEDS ORDERED: DOCUSATE 100 MG CAPSULE PO PRN (21:00)
[2018-11-24 21:30] VITALS: BP 123/90
[2018-11-24] MEDS: D5%-0.45% NACL 1,000 ML IV SCH (21:50)
[2018-11-24] MEDS: HEPARIN 5,000 UNITS/ML, 1ML SQ SCH (21:50)
[2018-11-24] MEDS: NICOTINE 7 MG/24 HR PATCH.TD24 TD SCH (21:53)
[2018-11-25 00:44] VITALS: BP 128/87
[2018-11-25] MEDS ORDERED: LORazepam 2 MG/ML, 1ML IVPush PRN (01:00)
[2018-11-25] MEDS: PANTOPROZOLE 40MG TABLET PO SCH ×2 (01:10→13:13)
[2018-11-25] MEDS: CEFAZOLIN PMX 1GM/50ML 50 ML IV SCH ×3 (02:37→18:23)
[2018-11-25] MEDS: D5%-0.45% NACL 1,000 ML IV SCH ×3 (02:38→18:23)
[2018-11-25 04:06] VITALS: BP 123/90
[2018-11-25] MEDS: HEPARIN 5,000 UNITS/ML, 1ML SQ SCH ×3 (04:40→21:05)
[2018-11-25 05:00] LABS: BASOPHILS # (AUTO) 0.02 x10^3/uL (0-0.1); BASOPHILS % (AUTO) 0 % (0-1); EOSINOPHILS # (AUTO) 0.01 x10^3/uL (0-0.4); EOSINOPHILS % (AUTO) 0 % (1-7); LYMPHOCYTES # (AUTO) 0.67 x10^3/uL (1-3.4); LYMPHOCYTES % (AUTO) 7 % (22-44); MD NO; MEAN CORPUSCULAR HEMOGLOBIN 28.2 pg (27.5-34.5); MEAN CORPUSCULAR HGB CONC 33.1 g/dL (33.2-36.2); MEAN CORPUSCULAR VOLUME 85.3 fL (81-97); MEAN PLATELET VOLUME 8.1 fL (7.4-10.4); MONOCYTES # (AUTO) 0.76 x10^3/uL (0.2-0.8); MONOCYTES % (AUTO) 8 % (2-9); NEUTROPHILS # (AUTO) 7.65 x10^3/uL (1.8-6.8); NEUTROPHILS % (AUTO) 84 % (42-75); PLATELET COUNT 424 x10^3/uL (130-400); RED BLOOD COUNT 4.52 x10^6/uL (4.38-5.82); RED CELL DISTRIBUTION WIDTH 19.7 % (9.4-14.8)
[2018-11-25 05:07] LABS: ANION GAP 5 mmol/L (5-15); CALCIUM 8.8 mg/dL (8.5-10.1); CHLORIDE 126 mmol/L (98-107); CREATININE 0.79 mg/dL (0.7-1.3)
[2018-11-25] MEDS: LIDODERM 5% PATCH TD PRN (05:53)
[2018-11-25 06:53] VITALS: BP 111/77
[2018-11-25] MEDS: SUCRALFATE 1 GM/10 ML UDC PO SCH ×3 (08:00→17:19)
--- NOTE | 2018-11-25 11:18 | NUR ---
REC: Chopped diet with NTL with aspiration precautions; orange sheet was placed in room with swallowing precautions Addendum: 11/25/18 at 1118 by Lynda BROOKS Amended: Links added.
[2018-11-25] MEDS: FOLIC ACID 1 MG TABLET PO SCH (11:29)
[2018-11-25 11:30] VITALS: BP 118/82
[2018-11-25] MEDS: AMLODIPINE 5 MG TABLET PO SCH (11:30)
[2018-11-25] MEDS: ALPRazolam 1MG TAB PO SCH (11:30)
[2018-11-25] MEDS: LEVETIRACETAM 500 MG TABLET PO SCH ×2 (11:30→21:05)
[2018-11-25] MEDS: MULTIVITAMIN 1 TABLET PO SCH (11:30)
[2018-11-25] MEDS: THIAMINE 100MG TABLET PO SCH (11:36)
[2018-11-25 13:46] VITALS: BP 100/64
[2018-11-25] MEDS ORDERED: LORazepam 2 MG/ML, 1ML IV PRN ×5 (16:30)
[2018-11-25] MEDS ORDERED: LORazepam 1MG TABLET PO PRN ×4 (16:30)
[2018-11-25] MEDS ORDERED: LORazepam 0.5MG TABLET PO PRN (16:30)
[2018-11-25 18:57] VITALS: BP 106/68
[2018-11-25] MEDS: NICOTINE 7 MG/24 HR PATCH.TD24 TD SCH (21:05)
[2018-11-26] MEDS: PANTOPROZOLE 40MG TABLET PO SCH ×2 (00:47→11:45)
[2018-11-26] MEDS: BACLOFEN 10 MG TABLET PO PRN ×3 (02:10→21:59)
[2018-11-26 02:26] VITALS: BP 123/74
[2018-11-26] MEDS: CEFAZOLIN PMX 1GM/50ML 50 ML IV SCH ×3 (02:57→20:17)
[2018-11-26] MEDS: D5%-0.45% NACL 1,000 ML IV SCH ×3 (02:57→20:17)
[2018-11-26] MEDS: HEPARIN 5,000 UNITS/ML, 1ML SQ SCH ×3 (05:53→22:01)
[2018-11-26 07:19] VITALS: BP 117/70
[2018-11-26] MEDS: SUCRALFATE 1 GM/10 ML UDC PO SCH ×2 (08:26→17:00)
[2018-11-26] MEDS: AMLODIPINE 5 MG TABLET PO SCH (08:26)
[2018-11-26] MEDS: ALPRazolam 1MG TAB PO SCH (08:26)
[2018-11-26] MEDS: LEVETIRACETAM 500 MG TABLET PO SCH ×2 (08:26→21:59)
[2018-11-26] MEDS: MULTIVITAMIN 1 TABLET PO SCH (08:26)
[2018-11-26] MEDS: THIAMINE 100MG TABLET PO SCH (08:26)
[2018-11-26] MEDS: FOLIC ACID 1 MG TABLET PO SCH (08:26)
[2018-11-26 09:51] LABS: ANION GAP 6 mmol/L (5-15); CALCIUM 8.3 mg/dL (8.5-10.1); CHLORIDE 111 mmol/L (98-107); CREATININE 0.56 mg/dL (0.7-1.3)
[2018-11-26 09:53] LABS: CREATINE KINASE, TOTAL 764 U/L (39-308)
[2018-11-26 12:15] VITALS: BP 100/63
[2018-11-26] MEDS: ACETAMINOPHEN 325 MG TABLET PO PRN (13:57)
[2018-11-26 20:07] VITALS: BP 109/67
[2018-11-26] MEDS: NICOTINE 7 MG/24 HR PATCH.TD24 TD SCH (21:59)
[2018-11-26] MEDS: LIDODERM 5% PATCH TD PRN (22:01)
[2018-11-27] MEDS: PANTOPROZOLE 40MG TABLET PO SCH ×3 (00:29→23:37)
[2018-11-27 00:41] VITALS: BP 108/72
[2018-11-27] MEDS: ACETAMINOPHEN 325 MG TABLET PO PRN ×2 (03:42→23:32)
[2018-11-27] MEDS: CEFAZOLIN PMX 1GM/50ML 50 ML IV SCH ×2 (03:43→12:00)
[2018-11-27] MEDS: D5%-0.45% NACL 1,000 ML IV SCH (03:43)
[2018-11-27] MEDS: HEPARIN 5,000 UNITS/ML, 1ML SQ SCH ×4 (05:13→21:40)
[2018-11-27] MEDS: BACLOFEN 10 MG TABLET PO PRN ×2 (06:01→23:32)
[2018-11-27 06:50] VITALS: BP 117/76
[2018-11-27] MEDS: FOLIC ACID 1 MG TABLET PO SCH (08:12)
[2018-11-27] MEDS: AMLODIPINE 5 MG TABLET PO SCH (08:12)
[2018-11-27] MEDS: THIAMINE 100MG TABLET PO SCH (08:12)
[2018-11-27] MEDS: MULTIVITAMIN 1 TABLET PO SCH (08:12)
[2018-11-27] MEDS: LEVETIRACETAM 500 MG TABLET PO SCH ×2 (08:12→21:39)
[2018-11-27] MEDS: ALPRazolam 1MG TAB PO SCH (08:12)
[2018-11-27] MEDS: SUCRALFATE 1 GM TABLET PO SCH ×2 (08:20→17:21)
[2018-11-27 09:25] LABS: ANION GAP 7 mmol/L (5-15); CALCIUM 8.2 mg/dL (8.5-10.1); CHLORIDE 114 mmol/L (98-107); CREATININE 0.38 mg/dL (0.7-1.3)
[2018-11-27 09:27] LABS: CREATINE KINASE, TOTAL 401 U/L (39-308)
[2018-11-27] MEDS ORDERED: POTASSIUM CHLORIDE 20 MEQ TAB.ER.PRT PO ONE (11:00)
[2018-11-27 13:07] VITALS: BP 100/61
[2018-11-27] MEDS: AMOXICILLIN/CLAV 875-125MG TABLET PO SCH (17:51)
[2018-11-27 19:00] VITALS: BP 109/70
[2018-11-27] MEDS: NICOTINE 7 MG/24 HR PATCH.TD24 TD SCH (21:40)
[2018-11-28 01:49] VITALS: BP 115/68
[2018-11-28] MEDS: HEPARIN 5,000 UNITS/ML, 1ML SQ SCH ×2 (05:38→18:38)
[2018-11-28] MEDS: AMOXICILLIN/CLAV 875-125MG TABLET PO SCH ×2 (05:39→18:38)
[2018-11-28 05:46] LABS: ANION GAP 6 mmol/L (5-15); CALCIUM 8.5 mg/dL (8.5-10.1); CHLORIDE 110 mmol/L (98-107); CREATININE 0.42 mg/dL (0.7-1.3)
[2018-11-28 05:48] LABS: CREATINE KINASE, TOTAL 279 U/L (39-308)
[2018-11-28 06:54] VITALS: BP 119/80
[2018-11-28] MEDS: PANTOPROZOLE 40MG TABLET PO SCH ×2 (09:53→20:15)
[2018-11-28] MEDS: LEVETIRACETAM 500 MG TABLET PO SCH ×2 (09:53→20:14)
[2018-11-28] MEDS: SUCRALFATE 1 GM TABLET PO SCH ×2 (09:53→18:37)
[2018-11-28] MEDS: MULTIVITAMIN 1 TABLET PO SCH (09:54)
[2018-11-28] MEDS: THIAMINE 100MG TABLET PO SCH (09:54)
[2018-11-28] MEDS: ALPRazolam 1MG TAB PO SCH (09:54)
[2018-11-28] MEDS: AMLODIPINE 5 MG TABLET PO SCH (09:54)
[2018-11-28] MEDS: FOLIC ACID 1 MG TABLET PO SCH (09:54)
[2018-11-28] MEDS ORDERED: POTASSIUM CHLORIDE 20 MEQ TAB.ER.PRT PO ONE (10:30)
[2018-11-28 13:50] VITALS: BP 119/80
[2018-11-28] MEDS: ACETAMINOPHEN 325 MG TABLET PO PRN (20:14)
[2018-11-28] MEDS: NICOTINE 7 MG/24 HR PATCH.TD24 TD SCH (20:14)
[2018-11-28 20:40] VITALS: BP 138/78
[2018-11-29] MEDS: ACETAMINOPHEN 325 MG TABLET PO PRN ×2 (02:49→14:19)
[2018-11-29] MEDS: BACLOFEN 10 MG TABLET PO PRN ×2 (02:49→14:19)
[2018-11-29] MEDS: HEPARIN 5,000 UNITS/ML, 1ML SQ SCH ×3 (02:49→18:39)
[2018-11-29 02:53] VITALS: BP 112/76
[2018-11-29] MEDS: AMOXICILLIN/CLAV 875-125MG TABLET PO SCH ×2 (06:16→17:30)
[2018-11-29 06:20] LABS: ANION GAP 5 mmol/L (5-15); CALCIUM 8.6 mg/dL (8.5-10.1); CHLORIDE 112 mmol/L (98-107)
[2018-11-29 06:23] LABS: CREATINE KINASE, TOTAL 173 U/L (39-308); CREATININE 0.32 mg/dL (0.7-1.3)
[2018-11-29 07:27] VITALS: BP 107/63
[2018-11-29] MEDS: LEVETIRACETAM 500 MG TABLET PO SCH ×2 (09:27→21:38)
[2018-11-29] MEDS: SUCRALFATE 1 GM TABLET PO SCH ×2 (09:27→17:28)
[2018-11-29] MEDS: ALPRazolam 1MG TAB PO SCH (09:27)
[2018-11-29] MEDS: MULTIVITAMIN 1 TABLET PO SCH (09:27)
[2018-11-29] MEDS: AMLODIPINE 5 MG TABLET PO SCH (09:28)
[2018-11-29] MEDS: PANTOPROZOLE 40MG TABLET PO SCH ×2 (09:28→21:39)
[2018-11-29] MEDS: FOLIC ACID 1 MG TABLET PO SCH (09:28)
[2018-11-29] MEDS: THIAMINE 100MG TABLET PO SCH (09:29)
[2018-11-29 12:15] VITALS: BP 111/69
[2018-11-29] MEDS: LIDODERM 5% PATCH TD PRN (17:30)
[2018-11-29 20:16] VITALS: BP 111/71
[2018-11-29] MEDS: NICOTINE 7 MG/24 HR PATCH.TD24 TD SCH (21:28)
[2018-11-30 00:21] VITALS: BP 110/69
[2018-11-30] MEDS: HEPARIN 5,000 UNITS/ML, 1ML SQ SCH ×3 (01:55→17:55)
[2018-11-30] MEDS: BACLOFEN 10 MG TABLET PO PRN ×3 (01:55→17:37)
[2018-11-30] MEDS: ACETAMINOPHEN 325 MG TABLET PO PRN ×3 (01:56→17:37)
[2018-11-30] MEDS: AMOXICILLIN/CLAV 875-125MG TABLET PO SCH ×2 (05:53→17:36)
[2018-11-30 07:20] VITALS: BP 109/72
[2018-11-30] MEDS: AMLODIPINE 5 MG TABLET PO SCH (09:00)
[2018-11-30] MEDS: LEVETIRACETAM 500 MG TABLET PO SCH ×2 (10:04→19:49)
[2018-11-30] MEDS: FOLIC ACID 1 MG TABLET PO SCH (10:04)
[2018-11-30] MEDS: SUCRALFATE 1 GM TABLET PO SCH ×2 (10:04→17:35)
[2018-11-30] MEDS: ALPRazolam 1MG TAB PO SCH (10:04)
[2018-11-30] MEDS: MULTIVITAMIN 1 TABLET PO SCH (10:06)
[2018-11-30] MEDS: PANTOPROZOLE 40MG TABLET PO SCH ×2 (10:06→19:48)
[2018-11-30] MEDS: THIAMINE 100MG TABLET PO SCH (10:06)
[2018-11-30 14:50] VITALS: BP 94/63
[2018-11-30] MEDS: LIDODERM 5% PATCH TD PRN (17:37)
[2018-11-30] MEDS: ONDANSETRON 2MG/ML, 2ML IVPush PRN (18:34)
[2018-11-30] MEDS: NICOTINE 7 MG/24 HR PATCH.TD24 TD SCH (19:48)
[2018-11-30 19:54] VITALS: BP 104/72
[2018-12-01] MEDS: HEPARIN 5,000 UNITS/ML, 1ML SQ SCH ×3 (02:45→18:41)
[2018-12-01 03:56] VITALS: BP 115/64
[2018-12-01 07:35] VITALS: BP 101/64
[2018-12-01] MEDS: AMLODIPINE 5 MG TABLET PO SCH (09:00)
[2018-12-01] MEDS: AMOXICILLIN/CLAV 875-125MG TABLET PO SCH ×2 (09:33→21:40)
[2018-12-01] MEDS: LEVETIRACETAM 500 MG TABLET PO SCH ×2 (09:33→21:34)
[2018-12-01] MEDS: THIAMINE 100MG TABLET PO SCH (09:33)
[2018-12-01] MEDS: MULTIVITAMIN 1 TABLET PO SCH (09:34)
[2018-12-01] MEDS: ALPRazolam 1MG TAB PO SCH (09:34)
[2018-12-01] MEDS: PANTOPROZOLE 40MG TABLET PO SCH ×2 (09:34→23:00)
[2018-12-01] MEDS: FOLIC ACID 1 MG TABLET PO SCH (09:34)
[2018-12-01] MEDS: BACLOFEN 10 MG TABLET PO PRN ×2 (09:34→23:42)
[2018-12-01] MEDS: ACETAMINOPHEN 325 MG TABLET PO PRN ×2 (09:39→16:53)
[2018-12-01] MEDS: SUCRALFATE 1 GM TABLET PO SCH ×2 (09:41→16:53)
[2018-12-01 13:19] VITALS: BP 105/76
[2018-12-01] MEDS: LIDODERM 5% PATCH TD PRN (13:26)
[2018-12-01 20:02] VITALS: BP 101/62
[2018-12-01] MEDS: NICOTINE 7 MG/24 HR PATCH.TD24 TD SCH (21:40)
[2018-12-02 01:46] VITALS: BP 119/73
[2018-12-02] MEDS: HEPARIN 5,000 UNITS/ML, 1ML SQ SCH ×3 (02:40→21:01)
[2018-12-02 07:25] VITALS: BP 114/76
[2018-12-02] MEDS: AMLODIPINE 5 MG TABLET PO SCH (09:12)
[2018-12-02] MEDS: SUCRALFATE 1 GM TABLET PO SCH ×2 (09:13→18:19)
[2018-12-02] MEDS: LEVETIRACETAM 500 MG TABLET PO SCH ×2 (09:13→21:02)
[2018-12-02] MEDS: THIAMINE 100MG TABLET PO SCH (09:13)
[2018-12-02] MEDS: MULTIVITAMIN 1 TABLET PO SCH (09:13)
[2018-12-02] MEDS: ALPRazolam 1MG TAB PO SCH (09:13)
[2018-12-02] MEDS: FOLIC ACID 1 MG TABLET PO SCH (09:14)
[2018-12-02] MEDS: AMOXICILLIN/CLAV 875-125MG TABLET PO SCH ×2 (09:14→21:02)
[2018-12-02] MEDS: ACETAMINOPHEN 325 MG TABLET PO PRN ×2 (09:20→18:19)
[2018-12-02] MEDS: PANTOPROZOLE 40MG TABLET PO SCH ×2 (11:29→21:02)
[2018-12-02 15:30] VITALS: BP 98/76
[2018-12-02] MEDS: ONDANSETRON 2MG/ML, 2ML IVPush PRN (18:19)
[2018-12-02 20:11] VITALS: BP 142/83
[2018-12-02] MEDS: BACLOFEN 10 MG TABLET PO PRN (21:45)
[2018-12-02] MEDS: NICOTINE 7 MG/24 HR PATCH.TD24 TD SCH (21:52)
[2018-12-03 00:39] VITALS: BP 118/76
[2018-12-03] MEDS: HEPARIN 5,000 UNITS/ML, 1ML SQ SCH ×3 (02:35→18:00)
[2018-12-03 08:07] VITALS: BP 106/71
[2018-12-03] MEDS: ALPRazolam 1MG TAB PO SCH (10:19)
[2018-12-03] MEDS: AMOXICILLIN/CLAV 875-125MG TABLET PO SCH ×2 (10:19→19:54)
[2018-12-03] MEDS: PANTOPROZOLE 40MG TABLET PO SCH ×2 (10:19→21:11)
[2018-12-03] MEDS: THIAMINE 100MG TABLET PO SCH (10:20)
[2018-12-03] MEDS: AMLODIPINE 5 MG TABLET PO SCH (10:20)
[2018-12-03] MEDS: FOLIC ACID 1 MG TABLET PO SCH (10:20)
[2018-12-03] MEDS: SUCRALFATE 1 GM TABLET PO SCH ×2 (10:20→18:00)
[2018-12-03] MEDS: MULTIVITAMIN 1 TABLET PO SCH (10:20)
[2018-12-03] MEDS: LEVETIRACETAM 500 MG TABLET PO SCH ×2 (10:20→19:54)
[2018-12-03] MEDS: ACETAMINOPHEN 325 MG TABLET PO PRN ×2 (13:10→21:11)
[2018-12-03 15:57] VITALS: BP 100/65
[2018-12-03 19:34] VITALS: BP 106/59
[2018-12-03] MEDS: NICOTINE 7 MG/24 HR PATCH.TD24 TD SCH (19:55)
[2018-12-04 01:08] VITALS: BP 142/82
[2018-12-04] MEDS: ACETAMINOPHEN 325 MG TABLET PO PRN ×2 (01:52→21:01)
[2018-12-04] MEDS: HEPARIN 5,000 UNITS/ML, 1ML SQ SCH ×2 (03:04→18:29)
[2018-12-04] MEDS: BACLOFEN 10 MG TABLET PO PRN (05:20)
[2018-12-04 07:11] VITALS: BP 111/73
[2018-12-04] MEDS: AMOXICILLIN/CLAV 875-125MG TABLET PO SCH ×2 (09:35→20:52)
[2018-12-04] MEDS: ALPRazolam 1MG TAB PO SCH (09:35)
[2018-12-04] MEDS: LEVETIRACETAM 500 MG TABLET PO SCH ×2 (09:35→20:52)
[2018-12-04] MEDS: THIAMINE 100MG TABLET PO SCH (09:35)
[2018-12-04] MEDS: SUCRALFATE 1 GM TABLET PO SCH ×2 (09:36→18:29)
[2018-12-04] MEDS: PANTOPROZOLE 40MG TABLET PO SCH ×2 (09:36→20:52)
[2018-12-04] MEDS: FOLIC ACID 1 MG TABLET PO SCH (09:36)
[2018-12-04] MEDS: MULTIVITAMIN 1 TABLET PO SCH (09:36)
[2018-12-04] MEDS: AMLODIPINE 5 MG TABLET PO SCH (09:38)
[2018-12-04 13:09] VITALS: BP 132/76
[2018-12-04 20:36] VITALS: BP 103/63
[2018-12-04] MEDS: NICOTINE 7 MG/24 HR PATCH.TD24 TD SCH (20:52)
[2018-12-05 00:35] VITALS: BP 113/65
[2018-12-05] MEDS: HEPARIN 5,000 UNITS/ML, 1ML SQ SCH ×3 (01:00→18:32)
[2018-12-05] MEDS: ACETAMINOPHEN 325 MG TABLET PO PRN ×2 (03:11→23:55)
[2018-12-05 08:08] VITALS: BP 100/62
[2018-12-05] MEDS: AMOXICILLIN/CLAV 875-125MG TABLET PO SCH ×2 (09:40→20:58)
[2018-12-05] MEDS: PANTOPROZOLE 40MG TABLET PO SCH ×2 (09:41→20:58)
[2018-12-05] MEDS: FOLIC ACID 1 MG TABLET PO SCH (09:41)
[2018-12-05] MEDS: AMLODIPINE 5 MG TABLET PO SCH (09:41)
[2018-12-05] MEDS: SUCRALFATE 1 GM TABLET PO SCH ×2 (09:41→17:00)
[2018-12-05] MEDS: THIAMINE 100MG TABLET PO SCH (09:41)
[2018-12-05] MEDS: ALPRazolam 1MG TAB PO SCH (09:41)
[2018-12-05] MEDS: MULTIVITAMIN 1 TABLET PO SCH (09:41)
[2018-12-05] MEDS: LEVETIRACETAM 500 MG TABLET PO SCH ×2 (09:41→20:57)
[2018-12-05 12:16] VITALS: BP 95/71
[2018-12-05 19:33] VITALS: BP 112/70
[2018-12-05] MEDS: NICOTINE 7 MG/24 HR PATCH.TD24 TD SCH (20:58)
[2018-12-05] MEDS: LIDODERM 5% PATCH TD PRN (22:53)
[2018-12-06] MEDS: HEPARIN 5,000 UNITS/ML, 1ML SQ SCH ×3 (00:49→17:51)
[2018-12-06 00:51] VITALS: BP 112/65
[2018-12-06] MEDS: BACLOFEN 10 MG TABLET PO PRN ×2 (04:47→18:01)
[2018-12-06 08:07] VITALS: BP 102/66
[2018-12-06] MEDS: SUCRALFATE 1 GM TABLET PO SCH ×2 (08:38→17:51)
[2018-12-06] MEDS: PANTOPROZOLE 40MG TABLET PO SCH ×2 (08:38→22:32)
[2018-12-06] MEDS: FOLIC ACID 1 MG TABLET PO SCH (08:38)
[2018-12-06] MEDS: THIAMINE 100MG TABLET PO SCH (08:39)
[2018-12-06] MEDS: AMOXICILLIN/CLAV 875-125MG TABLET PO SCH ×2 (08:39→22:32)
[2018-12-06] MEDS: AMLODIPINE 5 MG TABLET PO SCH (08:39)
[2018-12-06] MEDS: ALPRazolam 1MG TAB PO SCH (08:39)
[2018-12-06] MEDS: LEVETIRACETAM 500 MG TABLET PO SCH ×2 (08:39→22:32)
[2018-12-06] MEDS: MULTIVITAMIN 1 TABLET PO SCH (08:39)
[2018-12-06 12:44] VITALS: BP 112/68
[2018-12-06 19:12] VITALS: BP 115/73
[2018-12-06] MEDS: NICOTINE 7 MG/24 HR PATCH.TD24 TD SCH (22:20)
[2018-12-07 00:22] VITALS: BP 148/90
[2018-12-07] MEDS: LIDODERM 5% PATCH TD PRN (00:39)
[2018-12-07] MEDS: ACETAMINOPHEN 325 MG TABLET PO PRN ×3 (00:40→15:52)
[2018-12-07] MEDS: HEPARIN 5,000 UNITS/ML, 1ML SQ SCH ×3 (00:40→16:55)
[2018-12-07 03:12] LABS: CLOSTRIDIUM DIFFICILE ANTIGEN POSITIVE; CLOSTRIDIUM DIFFICILE TOXIN NEGATIVE (Negative)
[2018-12-07 07:02] VITALS: BP 117/68
[2018-12-07] MEDS: PANTOPROZOLE 40MG TABLET PO SCH ×2 (08:46→20:40)
[2018-12-07] MEDS: THIAMINE 100MG TABLET PO SCH (08:46)
[2018-12-07] MEDS: ALPRazolam 1MG TAB PO SCH (08:46)
[2018-12-07] MEDS: SUCRALFATE 1 GM TABLET PO SCH ×2 (08:46→16:55)
[2018-12-07] MEDS: LEVETIRACETAM 500 MG TABLET PO SCH ×2 (08:46→20:38)
[2018-12-07] MEDS: BACLOFEN 10 MG TABLET PO PRN ×2 (08:47→20:39)
[2018-12-07] MEDS: FOLIC ACID 1 MG TABLET PO SCH (08:47)
[2018-12-07] MEDS: AMLODIPINE 5 MG TABLET PO SCH (08:47)
[2018-12-07] MEDS: AMOXICILLIN/CLAV 875-125MG TABLET PO SCH ×2 (08:47→20:38)
[2018-12-07] MEDS: MULTIVITAMIN 1 TABLET PO SCH (08:47)
[2018-12-07 15:55] VITALS: BP 99/68
[2018-12-07 20:00] VITALS: BP 113/69
[2018-12-07] MEDS: NICOTINE 7 MG/24 HR PATCH.TD24 TD SCH (20:38)
[2018-12-08 01:03] VITALS: BP 112/70
[2018-12-08] MEDS: ACETAMINOPHEN 325 MG TABLET PO PRN ×3 (01:11→22:39)
[2018-12-08] MEDS: HEPARIN 5,000 UNITS/ML, 1ML SQ SCH ×3 (01:11→22:38)
[2018-12-08] MEDS: BACLOFEN 10 MG TABLET PO PRN ×2 (06:19→17:34)
[2018-12-08 06:57] VITALS: BP 116/73
[2018-12-08] MEDS: AMOXICILLIN/CLAV 875-125MG TABLET PO SCH (08:00)
[2018-12-08] MEDS: MULTIVITAMIN 1 TABLET PO SCH (09:00)
[2018-12-08] MEDS: ONDANSETRON 2MG/ML, 2ML IVPush PRN (09:05)
[2018-12-08] MEDS: PANTOPROZOLE 40MG TABLET PO SCH ×2 (10:00→22:38)
[2018-12-08] MEDS: SUCRALFATE 1 GM TABLET PO SCH ×2 (10:58→17:34)
[2018-12-08] MEDS: FOLIC ACID 1 MG TABLET PO SCH (10:58)
[2018-12-08] MEDS: LEVETIRACETAM 500 MG TABLET PO SCH (10:59)
[2018-12-08] MEDS: AMLODIPINE 5 MG TABLET PO SCH (10:59)
[2018-12-08] MEDS: THIAMINE 100MG TABLET PO SCH (11:01)
[2018-12-08] MEDS: ALPRazolam 1MG TAB PO SCH (11:01)
[2018-12-08 12:23] VITALS: BP 96/69
[2018-12-08 19:23] VITALS: BP 96/59
[2018-12-08] MEDS: LEVETIRACETAM 100 MG/ML ORAL SOL PO SCH (22:38)
[2018-12-08] MEDS: NICOTINE 7 MG/24 HR PATCH.TD24 TD SCH (22:38)
[2018-12-09 01:03] VITALS: BP 101/63
[2018-12-09] MEDS: BACLOFEN 10 MG TABLET PO PRN ×2 (01:28→18:39)
[2018-12-09] MEDS: ACETAMINOPHEN 325 MG TABLET PO PRN (03:26)
[2018-12-09] MEDS: HEPARIN 5,000 UNITS/ML, 1ML SQ SCH ×3 (06:06→22:30)
[2018-12-09 07:12] VITALS: BP 107/67
[2018-12-09] MEDS: ALPRazolam 1MG TAB PO SCH (09:17)
[2018-12-09] MEDS: MULTIVITAMIN 1 TABLET PO SCH (09:17)
[2018-12-09] MEDS: FOLIC ACID 1 MG TABLET PO SCH (09:17)
[2018-12-09] MEDS: SUCRALFATE 1 GM TABLET PO SCH ×2 (09:17→18:39)
[2018-12-09] MEDS: LEVETIRACETAM 100 MG/ML ORAL SOL PO SCH ×2 (09:17→20:14)
[2018-12-09] MEDS: THIAMINE 100MG TABLET PO SCH (09:17)
[2018-12-09] MEDS: AMLODIPINE 5 MG TABLET PO SCH (09:17)
[2018-12-09] MEDS: PANTOPROZOLE 40MG TABLET PO SCH ×2 (10:06→20:14)
[2018-12-09 14:18] VITALS: BP 103/61
--- NOTE | 2018-12-09 15:41 | NUR ---
ENVIRONMENTAL SERVICE AIDE RECOMMENDATIONS: CHOPPED/ THINS -No straws -Strict use of chin tuck -Up at 90 for all meals orange sheet posted Addendum: 12/09/18 at [address] Amended: Links added.
[2018-12-09 18:53] VITALS: BP 105/66
[2018-12-09] MEDS: NICOTINE 7 MG/24 HR PATCH.TD24 TD SCH (20:14)
[2018-12-10 00:15] VITALS: BP 90/60
[2018-12-10] MEDS: ACETAMINOPHEN 325 MG TABLET PO PRN ×3 (05:31→20:07)
[2018-12-10] MEDS: BACLOFEN 10 MG TABLET PO PRN ×3 (05:31→20:08)
[2018-12-10] MEDS: HEPARIN 5,000 UNITS/ML, 1ML SQ SCH ×3 (05:31→20:07)
[2018-12-10 07:12] VITALS: BP 96/65
[2018-12-10] MEDS: FOLIC ACID 1 MG TABLET PO SCH (07:50)
[2018-12-10] MEDS: ALPRazolam 1MG TAB PO SCH (07:51)
[2018-12-10] MEDS: LEVETIRACETAM 100 MG/ML ORAL SOL PO SCH ×2 (07:51→20:07)
[2018-12-10] MEDS: AMLODIPINE 5 MG TABLET PO SCH (07:51)
[2018-12-10] MEDS: THIAMINE 100MG TABLET PO SCH (07:51)
[2018-12-10] MEDS: MULTIVITAMIN 1 TABLET PO SCH (07:51)
[2018-12-10] MEDS: SUCRALFATE 1 GM TABLET PO SCH ×2 (07:51→18:20)
[2018-12-10] MEDS: PANTOPROZOLE 40MG TABLET PO SCH ×2 (11:56→20:07)
[2018-12-10 13:09] VITALS: BP 99/68
[2018-12-10] MEDS ORDERED: ONDANSETRON ODT 4 MG PO PRN (14:00)
[2018-12-10 19:11] VITALS: BP 112/65
[2018-12-10] MEDS: NICOTINE 7 MG/24 HR PATCH.TD24 TD SCH (20:07)
[2018-12-11 02:30] VITALS: BP 98/66
[2018-12-11] MEDS: ACETAMINOPHEN 325 MG TABLET PO PRN ×2 (05:06→20:17)
[2018-12-11] MEDS: BACLOFEN 10 MG TABLET PO PRN ×2 (05:06→20:22)
[2018-12-11] MEDS: HEPARIN 5,000 UNITS/ML, 1ML SQ SCH ×3 (06:22→20:23)
[2018-12-11 06:55] VITALS: BP 104/69
[2018-12-11] MEDS: SUCRALFATE 1 GM TABLET PO SCH ×2 (08:34→17:36)
[2018-12-11] MEDS: PANTOPROZOLE 40MG TABLET PO SCH ×2 (08:35→20:22)
[2018-12-11] MEDS: MULTIVITAMIN 1 TABLET PO SCH (08:35)
[2018-12-11] MEDS: THIAMINE 100MG TABLET PO SCH (08:35)
[2018-12-11] MEDS: ALPRazolam 1MG TAB PO SCH (08:35)
[2018-12-11] MEDS: LEVETIRACETAM 100 MG/ML ORAL SOL PO SCH ×2 (08:35→20:23)
[2018-12-11] MEDS: FOLIC ACID 1 MG TABLET PO SCH (08:35)
[2018-12-11] MEDS: AMLODIPINE 5 MG TABLET PO SCH (08:35)
[2018-12-11 14:20] VITALS: BP 110/73
[2018-12-11 18:48] VITALS: BP 100/63
[2018-12-11] MEDS: NICOTINE 7 MG/24 HR PATCH.TD24 TD SCH (20:22)
[2018-12-12 00:08] VITALS: BP 133/67
[2018-12-12] MEDS: ACETAMINOPHEN 325 MG TABLET PO PRN ×2 (02:02→20:43)
[2018-12-12] MEDS: HEPARIN 5,000 UNITS/ML, 1ML SQ SCH ×3 (04:30→20:43)
[2018-12-12 06:38] VITALS: BP 129/62
[2018-12-12] MEDS: LEVETIRACETAM 100 MG/ML ORAL SOL PO SCH ×2 (09:00→20:42)
[2018-12-12] MEDS: ALPRazolam 1MG TAB PO SCH (11:13)
[2018-12-12] MEDS: PANTOPROZOLE 40MG TABLET PO SCH ×2 (11:13→20:43)
[2018-12-12] MEDS: SUCRALFATE 1 GM TABLET PO SCH ×2 (11:13→18:18)
[2018-12-12] MEDS: FOLIC ACID 1 MG TABLET PO SCH (11:13)
[2018-12-12] MEDS: MULTIVITAMIN 1 TABLET PO SCH (11:13)
[2018-12-12] MEDS: THIAMINE 100MG TABLET PO SCH (11:13)
[2018-12-12] MEDS: AMLODIPINE 5 MG TABLET PO SCH (11:14)
[2018-12-12 13:09] VITALS: BP 135/67
[2018-12-12 19:40] VITALS: BP 103/66
[2018-12-12] MEDS: NICOTINE 7 MG/24 HR PATCH.TD24 TD SCH (20:43)
[2018-12-12] MEDS: BACLOFEN 10 MG TABLET PO PRN (20:43)
[2018-12-13 00:17] VITALS: BP 112/69
[2018-12-13] MEDS: ACETAMINOPHEN 325 MG TABLET PO PRN ×2 (00:54→21:19)
[2018-12-13] MEDS: HEPARIN 5,000 UNITS/ML, 1ML SQ SCH ×3 (04:30→21:19)
[2018-12-13 08:00] VITALS: BP 99/67
[2018-12-13] MEDS: LEVETIRACETAM 100 MG/ML ORAL SOL PO SCH ×2 (09:47→21:20)
[2018-12-13] MEDS: FOLIC ACID 1 MG TABLET PO SCH (09:47)
[2018-12-13] MEDS: ALPRazolam 1MG TAB PO SCH (09:47)
[2018-12-13] MEDS: THIAMINE 100MG TABLET PO SCH (09:47)
[2018-12-13] MEDS: PANTOPROZOLE 40MG TABLET PO SCH ×2 (09:47→21:19)
[2018-12-13] MEDS: SUCRALFATE 1 GM TABLET PO SCH ×2 (09:48→17:36)
[2018-12-13] MEDS: MULTIVITAMIN 1 TABLET PO SCH (09:48)
[2018-12-13] MEDS: AMLODIPINE 5 MG TABLET PO SCH (09:48)
[2018-12-13 14:06] VITALS: BP 148/95
[2018-12-13 18:20] VITALS: BP 107/68
[2018-12-13] MEDS: NICOTINE 7 MG/24 HR PATCH.TD24 TD SCH (21:20)
[2018-12-13] MEDS: BACLOFEN 10 MG TABLET PO PRN (23:18)
[2018-12-14 01:04] VITALS: BP 105/63
[2018-12-14] MEDS: ACETAMINOPHEN 325 MG TABLET PO PRN ×2 (01:52→09:04)
[2018-12-14] MEDS: HEPARIN 5,000 UNITS/ML, 1ML SQ SCH ×3 (05:39→21:24)
[2018-12-14 07:15] VITALS: BP 129/84
[2018-12-14] MEDS: LEVETIRACETAM 100 MG/ML ORAL SOL PO SCH ×2 (09:00→21:23)
[2018-12-14] MEDS: AMLODIPINE 5 MG TABLET PO SCH (09:04)
[2018-12-14] MEDS: PANTOPROZOLE 40MG TABLET PO SCH ×2 (09:04→21:23)
[2018-12-14] MEDS: FOLIC ACID 1 MG TABLET PO SCH (09:04)
[2018-12-14] MEDS: SUCRALFATE 1 GM TABLET PO SCH ×2 (09:04→16:23)
[2018-12-14] MEDS: THIAMINE 100MG TABLET PO SCH (09:04)
[2018-12-14] MEDS: MULTIVITAMIN 1 TABLET PO SCH (09:04)
[2018-12-14] MEDS: ALPRazolam 1MG TAB PO SCH (09:04)
--- NOTE | 2018-12-14 09:26 | NUR ---
REC: Chopped diet with thin liquids; aspiration precautions Addendum: 12/14/18 at 8367 by Lynda BROOKS Amended: Links added.
[2018-12-14 14:00] VITALS: BP 110/67
[2018-12-14 20:20] VITALS: BP 104/63
[2018-12-14] MEDS: BACLOFEN 10 MG TABLET PO PRN (21:24)
[2018-12-14] MEDS: NICOTINE 7 MG/24 HR PATCH.TD24 TD SCH (21:24)
[2018-12-15 01:34] VITALS: BP 111/69
[2018-12-15] MEDS: ACETAMINOPHEN 325 MG TABLET PO PRN (02:37)
[2018-12-15] MEDS: HEPARIN 5,000 UNITS/ML, 1ML SQ SCH ×2 (04:30→12:30)
[2018-12-15 07:53] VITALS: BP 104/67
[2018-12-15] MEDS: MULTIVITAMIN 1 TABLET PO SCH (08:49)
[2018-12-15] MEDS: THIAMINE 100MG TABLET PO SCH (08:50)
[2018-12-15] MEDS: FOLIC ACID 1 MG TABLET PO SCH (08:50)
[2018-12-15] MEDS: AMLODIPINE 5 MG TABLET PO SCH (08:50)
[2018-12-15] MEDS: LEVETIRACETAM 100 MG/ML ORAL SOL PO SCH (08:50)
[2018-12-15] MEDS: SUCRALFATE 1 GM TABLET PO SCH (08:50)
[2018-12-15] MEDS: PANTOPROZOLE 40MG TABLET PO SCH (08:50)
[2018-12-15] MEDS: ALPRazolam 1MG TAB PO SCH (08:50)
[2018-12-15] MEDS ORDERED: ACET325T14 PO (12:24)
[2018-12-15] MEDS ORDERED: LIDO700A20 TD (12:24)
== END 2018-12-15 14:46 | disposition home health service (06) | DRG 557 ==
LOC: ED 16:36 → EDIP 20:02 → 3NE 21:20
PROVIDERS: ADMIT Family Medicine; ATTEND Family Medicine
PROC: 0T9B70Z Drainage of Bladder with Drainage Device, Via Natural or Artificial Opening (ICD-10-PCS; principal; 2018-11-24)
DX: M62.82 Rhabdomyolysis (principal); G93.41 Metabolic encephalopathy; E43 Unspecified severe protein-calorie malnutrition; E87.0 Hyperosmolality and hypernatremia; E87.1 Hypo-osmolality and hyponatremia; I50.32 Chronic diastolic (congestive) heart failure; L03.818 Cellulitis of other sites; R62.7 Adult failure to thrive; D72.829 Elevated white blood cell count, unspecified; E86.0 Dehydration; L89.890 Pressure ulcer of other site, unstageable; L89.220 Pressure ulcer of left hip, unstageable; L89.120 Pressure ulcer of left upper back, unstageable; L89.510 Pressure ulcer of right ankle, unstageable; L89.210 Pressure ulcer of right hip, unstageable; F17.210 Nicotine dependence, cigarettes, uncomplicated; L89.90 Pressure ulcer of unspecified site, unspecified stage; G40.909 Epilepsy, unspecified, not intractable, without status epilepticus; I11.0 Hypertensive heart disease with heart failure; M81.0 Age-related osteoporosis without current pathological fracture; Z86.718 Personal history of other venous thrombosis and embolism; Z86.73 Personal history of transient ischemic attack (TIA), and cerebral infarction without residual deficits; Z68.20 Body mass index [BMI] 20.0-20.9, adult; Z91.19 Patient's noncompliance with other medical treatment and regimen; Z88.8 Allergy status to other drugs, medicaments and biological substances
CPT/HCPCS: 36415; 70450; 70486; 71045; 72125; 72190; 74230; 80048; 80053; 80307; 81001; 82550; 83605; 83930; 84145; 85025; 86480; 87040; 87324; 93005; 96361; 96365; 96375; 99285; G0378; J0690; J1644; J2405; J7030

== ENCOUNTER 2020-02-08 10:53 | Emergency (ER) | payer MEDICARE, OTHER ==
[~2020-02-08] VITALS: Ht 175.3 cm; Wt 73.0 kg
[~2020-02-08 10:53] MED LIST changes: +ACET-2274 PO; +ACET325T14 PO; -ACET325T21 PO; +LIDO700A20 TD; -POTA20LI PO; +POTA20LI2 PO
[2020-02-08] MEDS ORDERED: SODIUM CHLORIDE 0.9% 1,000 ML IV ONE (11:09)
[2020-02-08] MEDS ORDERED: PLEASE ENTER HEIGHT AND WEIGHT MC SCH (11:30)
[2020-02-08 12:14] LABS: BASOPHILS # (AUTO) 0.02 x10^3/uL (0-0.1); BASOPHILS % (AUTO) 0 % (0-1); EOSINOPHILS % (AUTO) 5 % (1-7); LYMPHOCYTES # (AUTO) 1.24 x10^3/uL (1-3.4); LYMPHOCYTES % (AUTO) 16 % (22-44); MD NO; MEAN CORPUSCULAR HEMOGLOBIN 29.7 pg (27.5-34.5); MEAN CORPUSCULAR HGB CONC 32.8 g/dL (33.2-36.2); MEAN CORPUSCULAR VOLUME 90.7 fL (81-97); MEAN PLATELET VOLUME 7.7 fL (7.4-10.4); MONOCYTES # (AUTO) 0.53 x10^3/uL (0.2-0.8); MONOCYTES % (AUTO) 7 % (2-9); NEUTROPHILS # (AUTO) 5.42 x10^3/uL (1.8-6.8); NEUTROPHILS % (AUTO) 71 % (42-75); PLATELET COUNT 395 x10^3/uL (130-400); RED BLOOD COUNT 5.27 x10^6/uL (4.38-5.82)
[2020-02-08 12:21] LABS: ALANINE AMINOTRANSFERASE 14 U/L (12-78); ALBUMIN 3.5 g/dL (3.4-5.0); ANION GAP 9 mmol/L (5-15); CALCIUM 9.1 mg/dL (8.5-10.1); CHLORIDE 109 mmol/L (98-107); CREATININE 0.66 mg/dL (0.7-1.3)
[2020-02-08 12:23] LABS: ALKALINE PHOSPHATASE 100 U/L (45-117); BILIRUBIN,TOTAL 0.5 mg/dL (0.2-1.0)
[2020-02-08 12:43] LABS: MICROSCOPIC AUTO
--- NOTE | 2020-02-08 12:59 | NUR ---
TASK RN. PT MEDICATED FOR PAIN PER ORDERS. PT REMAINS ON MONITORS, VSS. PT REMAINS A&OX4. ON WAFFLE MATTRESS.
[2020-02-08 16:45] VITALS: BP 121/66
== END 2020-02-08 16:47 | disposition home or self-care (01) ==
LOC: ED 12:20
DX: R50.9 Fever, unspecified (principal); R19.7 Diarrhea, unspecified; R11.10 Vomiting, unspecified; Z87.891 Personal history of nicotine dependence
CPT/HCPCS: 36415; 51702; 80053; 81001; 83605; 85025; 87077; 87086; 87186; 99283; 99284